=== PATIENT | female | born 1950 | race Caucasian/White ===

== ENCOUNTER 2020-10-20 11:53 | Emergency (ER) | payer MEDICARE, SELFPAY ==
--- NOTE | 2020-10-20 12:08 | ED_ITS ---
HPI - Chest Pain General Chief Complaint: Chest Pain Stated Complaint: chest pain Time Seen by Provider: 10/20/20 12:08 Source: patient Mode of arrival: ambulatory Limitations: no limitations History of Present Illness HPI narrative: This is a pleasant 70-year-old female she has a past medical history that is significant for hypertension, hypothyroidism, dyslipidemia, gastroesophageal reflux disease, gout, anxiety disorder for which she is taking citalopram for she presents today with complaint of left-sided chest pain/discomfort since yesterday states she took 324 mg of aspirin yesterday felt better for today no pain but just this feel ?right?. Again she denies any pain today she does report that she has had some increased stressors especially due to the holidays and she suffers from anxiety unsure if this is related. She does report that she has similar episodes once in the past where she had a hollie p and was told it might be anxiety related. She denies any other complaints. No recent travels. No recent sick contact, URI symptoms, cough or shortness of breath. No leg swelling. MD complaint: chest discomfort Onset: other (No specific alleviating/aggravating factors) Pain location: left chest Pain radiation: left arm Severity: mild Quality: tightness Relieving factors: nothing Exacerbating factors: nothing Treatment prior to arrival: aspirin Risk Factors Coronary artery disease risk factors: hyperlipidemia and hypertension Thoracic aortic dissection risk factors: none Related Data On Oral Contraceptives: No Allergies Allergy/AdvReac Type Severity Reaction Status Date / Time penicillin G [PENICILLIN G] Allergy Severe TONGUE Unverified 07/14/20 16:15 SWELLED AT AGE OF [age] YEAR OLD Sulfa (Sulfonamide Allergy Mild ITCHY Unverified 07/14/20 16:15 Antibiotics) [SULFA (SULFONAMIDE ANTIBIOTICS)] Review of Systems Review of Systems: Constitutional: No Weight loss, No Fever, No Chills, No Night Sweats, No Fatigue, No Malaise ENT/Mouth: No Hearing loss, No Ear Pain, No Nasal Congestion, No Sinus Pain, No Hoarseness, No sore throat, No Rhinorrhea, No Swallowing Difficulty Eyes: No Eye Pain, No Swelling, No Redness, No Foreign Body, No Discharge, No Vision Changes Cardiovascular: No Chest Pain, No SOB, No Dyspnea on Exertion, No Orthopnea, No Edema, No Palpitations Respiratory: No Cough, No Sputum, No Wheezing, No Smoke Exposure, No Dyspnea Gastrointestinal: No Nausea, No Vomiting, No Diarrhea, No Constipation, No abdominal Pain, No Hematochezia, No Melena Genitourinary: no irregular bleeding, No Dysuria, No Urinary Frequency, No Hematuria, No Urinary Incontinence, No Urgency, No Flank Pain Musculoskeletal: No joint pain, No Myalgias, No Joint Swelling Skin: No Skin Lesions, No rash Neuro: No Weakness, No Numbness, No Paresthesias, No Loss of Consciousness, No Dizziness, No Headache Psych: + Anxiety/Panic, No Depression, No SI/HI/AH/VH Heme/Lymph: No Bruising, No Bleeding,No Lymphadenopathy Endocrine: No Polyuria, No Polydipsia, No Temperature Intolerance Yes all other systems are reviewed and are negative [facility] Past Medical History Medical History Anxiety GERD (gastroesophageal reflux disease) High cholesterol HTN (hypertension) Hypothyroid Social History Social History Advance Directives: No Advance Directives Information Provided: No Physical Exam Vital Signs: Vital Signs: Last Vital Signs Temp 98.3 F 10/20/20 14:00 Pulse 96 10/20/20 14:00 Resp 20 10/20/20 14:00 BP 168/74 H 10/20/20 14:00 Pulse Ox 98 10/20/20 14:00 Body Mass Index 41.5 Reviewed Const: General: cooperative and healthy appearing; No acute distress or intoxicated appearing Nutritional Appearance: average body habitus Orientation/consciousness: patient oriented x3 HENMT: Head: Yes normal to inspection Ears: hearing grossly normal bilaterally Eyes: General: appearance normal, both eyes and all related structures Visual Harris: normal visual harris by confrontation Neck: Neck: Yes normal visual inspection and No tender Thyroid: Thyroid normal Chest: Chest palpation & inspection: normal inspection of the chest Resp: Effort & Inspection: normal respiratory effort Auscultation: clear to auscultation bilaterally Cardio: Jugular venous distension: no JVD Rhythm: regular rhythm Heart sounds: S1 normal heart sound present and S2 normal heart sound present GI: Inspection: Yes normal to inspection Percussion: Yes normal to percussion Auscultation: normal bowel sounds : General: Yes no CVA tenderness Back/Spine/Pelvis: Back: no CVA tenderness Skin: General skin exam: no rashes or lesions noted Neuro: General: patient oriented x3 Extrem: General: Yes normal to inspection MDM - Chest Pain MDM Narrative Medical decision making narrative: Labs overall stable. CBC within normal limits chemistries unremarkable, TSH, troponin negative. EKG nondiagnostic. Chest x-ray unremarkable. Age adjusted D-dimer within normal limits. H just cut off for patient is 680 today's levels 241. She is not hypoxic nor tachycardic to suggest pulmonary embolism. AP more consistent with atypical type chest pain/anxiety state. She feels better after 0.5 mg lorazepam p.o. has been resting comfortably without any complaints of pain or discomfort. Will be discharged home with clear precautions and follow-up instructions. Stable for discharge. Differential Diagnosis Differential diagnosis: Likely atypical chest pain, costochondritis and chest pain; Unlikely fracture of rib, pneumothorax, stable angina, unstable angina pectoris, st elevation myocardial infarction and biliary colic Medical Records Data Attestation: I reviewed the patient's medical records. Medical records narrative: Admission/discharge from 01/19/2014 reviewed; admission for chest pain rule out Lab Data Attestation: I reviewed the patient's lab results. Result diagrams: 10/20/20 13:54 10/20/20 13:55 Labs: Lab Results 10/20/20 10/20/20 10/20/20 Range/Units 13:54 13:55 13:55 WBC 6.5 (4.8-10.8) X10*3/uL RBC 4.41 (4.20-5.50) X10*6/uL Hgb 13.3 (12.0-16.0) g/dl Hct 41.0 (37-47) % MCV 93.0 (80-98) fL MCH 30.2 (27.0-33.0) pg MCHC 32.4 (31.0-35.0) g/dl RDW 14.0 (11.0-16.0) % Plt Count 305 (160-400) X10*3/uL MPV 11.0 (9.4-12.3) fL Immature Gran % (Auto) 0.3 (0.0-0.4) % Neut % (Auto) 53.8 (45-73) % Lymph % (Auto) 36.6 (20-40) % Wilkes % (Auto) 5.6 (2-11) % Eos % (Auto) 3.2 (0-4) % Baso % (Auto) 0.5 (0-2) % Lymph # (Auto) 2.4 (1.2-4.9) X10*3/uL Wilkes # (Auto) 0.4 (0.1-1.2) X10*3/uL Eos # (Auto) 0.2 (0.0-0.4) X10*3/uL Baso # (Auto) 0.0 (0.0-0.2) X10*3/uL Abs Immat Gran (auto) 0.02 (0.00-0.03) X10*3/uL Absolute Neuts (auto) 3.5 (2.0-8.3) X10*3/uL Absolute Nucleated RBC 0.000 (0.0-0.012) X10*3/uL Nucleated RBC % (auto) 0.0 (0.0-0.2) /100WBC PT 12.7 (10.8-13.0) SEC INR 1.1 (0.9-1.1) APTT 35.4 (24.1-38.0) SEC D-Dimer 241 NG/ML Sodium 140 (135-145) mmol/L Potassium 4.2 (3.3-5.1) mmol/l Chloride 107 (96-108) mmol/L Carbon Dioxide 25 (22-29) mmol/L Anion Gap 12 (12-20) BUN 16 (9-16) mg/dL Creatinine 0.80 (0.5-1.4) mg/dL Estim Creat Clear Calc 72.8 Estimated GFR > 60 Random Glucose 111 (60-115) mg/dL Calcium 9.1 (8.4-10.2) mg/dL Total Bilirubin 0.5 (0.0-1.0) mg/dL AST 29 (5-31) U/L ALT 36 H (0-31) U/L Alkaline Phosphatase 108 (39-117) U/L Troponin I High Sens (<3.5-17.0) ng/L Total Protein 6.8 (6.5-8.0) g/dL Albumin 4.2 (3.5-5.0) g/dL TSH 3.17 (0.32-4.0) uIU/mL Urine Color Urine Appearance Urine pH (5.0-8.0) Ur Specific [place] (1.005-1.025) Urine Protein (NEG-TRACE) MG/DL Urine Glucose (UA) (NEG) MG/DL Urine Ketones (NEG) MG/DL Urine Blood (NEG) Urine Nitrite (NEG) Ur Leukocyte Esterase (NEG) Urine RBC (0) /HPF Urine WBC (0-4) /HPF Ur Squamous Epith Cells /LPF Urine Bacteria /LPF Coronavirus (PCR) (Negative) Influenza Type A (PCR) (Negative) Influenza Type B (PCR) (Negative) RSV RNA Qual (PCR) (Negative) 10/20/20 10/20/20 10/20/20 Range/Units 13:55 14:13 14:15 WBC (4.8-10.8) X10*3/uL RBC (4.20-5.50) X10*6/uL Hgb (12.0-16.0) g/dl Hct (37-47) % MCV (80-98) fL MCH (27.0-33.0) pg MCHC (31.0-35.0) g/dl RDW (11.0-16.0) % Plt Count (160-400) X10*3/uL MPV (9.4-12.3) fL Immature Gran % (Auto) (0.0-0.4) % Neut % (Auto) (45-73) % Lymph % (Auto) (20-40) % Wilkes % (Auto) (2-11) % Eos % (Auto) (0-4) % Baso % (Auto) (0-2) % Lymph # (Auto) (1.2-4.9) X10*3/uL Wilkes # (Auto) (0.1-1.2) X10*3/uL Eos # (Auto) (0.0-0.4) X10*3/uL Baso # (Auto) (0.0-0.2) X10*3/uL Abs Immat Gran (auto) (0.00-0.03) X10*3/uL Absolute Neuts (auto) (2.0-8.3) X10*3/uL Absolute Nucleated RBC (0.0-0.012) X10*3/uL Nucleated RBC % (auto) (0.0-0.2) /100WBC PT (10.8-13.0) SEC INR (0.9-1.1) APTT (24.1-38.0) SEC D-Dimer NG/ML Sodium (135-145) mmol/L Potassium (3.3-5.1) mmol/l Chloride (96-108) mmol/L Carbon Dioxide (22-29) mmol/L Anion Gap (12-20) BUN (9-16) mg/dL Creatinine (0.5-1.4) mg/dL Estim Creat Clear Calc Estimated GFR Random Glucose (60-115) mg/dL Calcium (8.4-10.2) mg/dL Total Bilirubin (0.0-1.0) mg/dL AST (5-31) U/L ALT (0-31) U/L Alkaline Phosphatase (39-117) U/L Troponin I High Sens < 3.5 (<3.5-17.0) ng/L Total Protein (6.5-8.0) g/dL Albumin (3.5-5.0) g/dL TSH (0.32-4.0) uIU/mL Urine Color YELLOW Urine Appearance CLEAR Urine pH 6.0 (5.0-8.0) Ur Specific [place] 1.020 (1.005-1.025) Urine Protein NEG (NEG-TRACE) MG/DL Urine Glucose (UA) NEG (NEG) MG/DL Urine Ketones NEG (NEG) MG/DL Urine Blood NEG (NEG) Urine Nitrite NEG (NEG) Ur Leukocyte Esterase NEG (NEG) Urine RBC 0-2 (0) /HPF Urine WBC 0 (0-4) /HPF Ur Squamous Epith Cells TRACE /LPF Urine Bacteria NONE /LPF Coronavirus (PCR) NEGATIVE (Negative) Influenza Type A (PCR) NEGATIVE (Negative) Influenza Type B (PCR) NEGATIVE (Negative) RSV RNA Qual (PCR) NEGATIVE (Negative) Imaging Data Chest x-ray: Radiologist's impression: [address] [address] XRay Report Signed Patient: Becky Randhawa#: [id number] : 2Acct:[id number] Age/Sex: 70 / FADM Date: 10/20/20 Loc: HO.ED Attending Dr: Ordering Physician: Paul Garcia NP Date of Service: 10/20/20 Procedure(s): XR chest 1V Accession Number(s): [id number] cc: Paul Garcia [employer]OR OPERATOR~ EXAMINATION: XR CHEST CLINICAL INFORMATION: Chest pain COMPARISON: Report chest radiographs 01/19/2014 TECHNIQUE: Portable upright AP view of the chest was obtained. FINDINGS: The lungs are clear. There is no pneumothorax, pleural reaction, airspace consolidation, or groundglass opacity. The costophrenic sulci are clear. The heart is normal in size and the hilar contours are normal. There is retrocardiac lucency likely related to hiatal hernia measuring approximately 4.5 cm. No acute bony abnormality. XR/XR chest 1V IMPRESSION: 1. Lungs clear. No pneumothorax, infiltrate, or effusion. 2. Probable hiatal hernia. Dictated By:SAMMY JAQUEZ MD Signed By:<Electronically signed by SAMMY JAQUEZ MD in OV>10/20/20 1258 DD/ 1217 TD/TT: Manager Enterprise Content Management: GIRALDO ECG Data ECG #1: Interpretation: Normal sinus rhythm Rate 95 MN interval within normal limits No acute ST segment elevation Discharge Plan Discharge Clinical Impression: Atypical chest pain, Anxiety, Other social stressor Patient Disposition: Home, Self-Care Instructions: Chest Pain (ED), Anxiety (ED) Additional Instructions: Your complete blood count was within normal limits did not show any evidence of anemia Comprehensive metabolic profile was also within normal limits no evidence of electrolyte abnormality; kidneys function was within normal limits, liver function within normal limits Thyroid was 3.17. Her troponin was negative. Her chest x-ray did not show any evidence of acute disease Your COVID, RSV, flu test was negative Take medication prescribed Stress relieving techniques as discussed Return if any concerns or worsening symptoms Otherwise follow-up as discussed Thank you Referrals: Hi Berry [Primary Care Provider] - 1 week
[2020-10-20 12:09] VITALS: BP 170/80; PULSE 96; RESP 20; TEMP 36.8; O2SAT 98; BMI 41.5
--- NOTE | 2020-10-20 12:17 | ECG_ITS ---
Test Reason : SOB Blood Pressure : / mmHG Vent. Rate : 095 BPM Atrial Rate : 095 BPM P-R Int : 118 ms QRS Dur : 100 ms QT Int : 356 ms P-R-T Axes : 030 003 025 degrees QTc Int : 447 ms Normal sinus rhythm Normal ECG When compared with ECG of 19-JAN-2014 04:12, No significant change was found Referred By: Paul Garcia Electronically Signed By:CHIRAG MONTOYA MD
--- NOTE | 2020-10-20 12:17 | XR_ITS ---
EXAMINATION: XR CHEST CLINICAL INFORMATION: Chest pain COMPARISON: Report chest radiographs 01/19/2014 TECHNIQUE: Portable upright AP view of the chest was obtained. FINDINGS: The lungs are clear. There is no pneumothorax, pleural reaction, airspace consolidation, or groundglass opacity. The costophrenic sulci are clear. The heart is normal in size and the hilar contours are normal. There is retrocardiac lucency likely related to hiatal hernia measuring approximately 4.5 cm. No acute bony abnormality. XR/XR chest 1V IMPRESSION: 1. Lungs clear. No pneumothorax, infiltrate, or effusion. 2. Probable hiatal hernia.
[2020-10-20] MEDS: LORazepam 0.5 MG TABLET PO (12:26)
[2020-10-20 14:00] VITALS: BP 168/74; PULSE 96; RESP 20; TEMP 36.8; O2SAT 98
[2020-10-20 14:03] LABS: Basophils Percent Auto 0.5 % (0-2); Eosinophils Absolute Auto 0.2 X10*3/uL (0.0-0.4); Eosinophils Percent Auto 3.2 % (0-4); Hemoglobin 13.3 g/dl (12.0-16.0); Imm Gran Abs Auto 0.02 X10*3/uL (0.00-0.03); Imm Gran Pct Auto 0.3 % (0.0-0.4); Lymphocytes Absolute Auto 2.4 X10*3/uL (1.2-4.9); Lymphocytes Percent Auto 36.6 % (20-40); MANUAL DIFF FLAG NO; Mean Corpuscular HGB Conc 32.4 g/dl (31.0-35.0); Mean Corpuscular Hemoglobin 30.2 pg (27.0-33.0); Monocytes Absolute Auto 0.4 X10*3/uL (0.1-1.2); Monocytes Percent Auto 5.6 % (2-11); Neutrophils Absolute Auto 3.5 X10*3/uL (2.0-8.3); Neutrophils Percent Auto 53.8 % (45-73); Platelet Count 305 X10*3/uL (160-400); Red Blood Count 4.41 X10*6/uL (4.20-5.50); White Blood Count 6.5 X10*3/uL (4.8-10.8)
[2020-10-20 14:20] LABS: INTERNATIONAL NORM RATIO 1.1 (0.9-1.1); Prothrombin Time 12.7 SEC (10.8-13.0)
[2020-10-20 14:21] LABS: Glucose Urine UA NEG (NEG); Leukocyte Esterase Urine NEG (NEG); Nitrite Urine NEG (NEG); Urine Blood NEG (NEG); Urine Ketones NEG (NEG); Urine Protein NEG (NEG-TRACE)
[2020-10-20 14:22] LABS: Appearance Urine CLEAR; Color Urine YELLOW
[2020-10-20 14:22] LABS: D Dimer 241 NG/ML; Partial Thromboplastin Time 35.4 SEC (24.1-38.0)
[2020-10-20 14:26] LABS: Alanine Aminotransferase 36 U/L (0-31); Albumin Level 4.2 g/dL (3.5-5.0); Alkaline Phosphatase 108 U/L (39-117); Anion Gap 12 (12-20); Aspartate Amino Transferase 29 U/L (5-31); Bilirubin Total 0.5 mg/dL (0.0-1.0); Blood Urea Nitrogen 16 mg/dL (9-16); Calcium 9.1 mg/dL (8.4-10.2); Carbon Dioxide 25 mmol/L (22-29); Chloride 107 mmol/L (96-108); Creatinine Clr Calc Pharmacy 72.8; Estimated Glomerular Filt Rate > 60; Glucose Random 111 mg/dL (60-115); Potassium 4.2 mmol/l (3.3-5.1); Sodium 140 mmol/L (135-145); Total Protein 6.8 g/dL (6.5-8.0)
[2020-10-20 14:29] LABS: RBC Urine 0-2 /HPF (0); Squamous Epithelial Cell Urine TRACE /LPF; WBC Urine 0 /HPF (0-4)
[2020-10-20 14:33] LABS: Troponin-I High Sensitivity < 3.5 ng/L (<3.5-17.0)
[2020-10-20 14:48] LABS: Thyroid Stimulating Hormone 3.17 uIU/mL (0.32-4.0)
[2020-10-20 14:59] LABS: Influenza A PCR NEGATIVE (Negative); Influenza B PCR NEGATIVE (Negative); Resp Syncy Virus RNA Qual PCR NEGATIVE (Negative); SARS COV2 PCR INHOUSE NEGATIVE (Negative)
[2020-10-20 16:00] VITALS: BP 164/82; PULSE 96; RESP 20; TEMP 36.3; O2SAT 98
== END 2020-10-20 16:25 | disposition home or self-care (01) ==
PROVIDERS: Nurse Practitioner Primary Care; Emergency Provider Emergency Medicine; PCP Hospitalist
DX: R07.89 Other chest pain (principal); Z20.828 Contact with and (suspected) exposure to other viral communicable diseases; F41.9 Anxiety disorder, unspecified; F43.9 Reaction to severe stress, unspecified; I10 Essential (primary) hypertension
CPT/HCPCS: 0241U; 36415; 71045; 80053; 81001; 84443; 84484; 85025; 85379; 85610; 85730; 93005; 99284

== ENCOUNTER 2022-08-17 20:27 | Emergency (ER) | payer MEDICARE, SELFPAY ==
--- NOTE | 2022-08-17 | ECG_ITS ---
Test Reason : HYPERTENSION Blood Pressure : / mmHG Vent. Rate : 077 BPM Atrial Rate : 077 BPM P-R Int : 134 ms QRS Dur : 082 ms QT Int : 386 ms P-R-T Axes : 030 006 021 degrees QTc Int : 436 ms Normal sinus rhythm Normal ECG When compared with ECG of 20-OCT-2020 11:57, No significant change was found Referred By: Generic ED Physician Electronically Signed By:SHA HILL MD
[2022-08-17 21:47] VITALS: BP 202/87; PULSE 80; RESP 22; TEMP 36.8; O2SAT 97; BMI 41.5
[2022-08-17 23:09] LABS: MANUAL DIFF FLAG NO
[2022-08-17 23:11] LABS: Basophils Absolute Auto 0.1 X10*3/uL (0.0-0.2); Basophils Percent Auto 0.7 % (0-2); Eosinophils Absolute Auto 0.3 X10*3/uL (0.0-0.4); Eosinophils Percent Auto 3.2 % (0-4); Hemoglobin 13.6 g/dl (12.0-16.0); Imm Gran Abs Auto 0.04 X10*3/uL (0.00-0.03); Imm Gran Pct Auto 0.5 % (0.0-0.4); Lymphocytes Absolute Auto 2.9 X10*3/uL (1.2-4.9); Lymphocytes Percent Auto 32.3 % (20-40); Mean Corpuscular HGB Conc 33.2 g/dl (31.0-35.0); Mean Corpuscular Hemoglobin 30.4 pg (27.0-33.0); Mean Corpuscular Volume 91.7 fL (80.0-98.0); Mean Platelet Volume 10.9 fL (9.4-12.3); Monocytes Absolute Auto 0.5 X10*3/uL (0.1-1.2); Monocytes Percent Auto 5.9 % (2-11); Neutrophils Absolute Auto 5.1 x10*3/uL (2.0-8.3); Neutrophils Percent Auto 57.4 % (45-73); Platelet Count 350 X10*3/uL (160-400); Red Blood Count 4.47 X10*6/uL (4.20-5.50); White Blood Count 8.9 X10*3/uL (4.8-10.8)
[2022-08-17 23:32] LABS: Alanine Aminotransferase 26 U/L (0-31); Albumin Level 4.6 g/dL (3.5-5.0); Alkaline Phosphatase 108 U/L (39-117); Anion Gap 15 (12-20); Aspartate Amino Transferase 23 U/L (5-31); Bilirubin Total 0.6 mg/dL (0.0-1.0); Blood Urea Nitrogen 18 mg/dL (9-16); Calcium 9.8 mg/dL (8.4-10.2); Carbon Dioxide 26 mmol/L (22-29); Chloride 107 mmol/L (96-108); Creatinine Clr Calc Pharmacy 67.4; Estimated Glomerular Filt Rate > 60; Glucose Random 107 mg/dL (60-115); Potassium 4.7 mmol/L (3.3-5.1); Sodium 143 mmol/L (135-145); Total Protein 7.2 g/dL (6.5-8.0)
[2022-08-17 23:37] LABS: Troponin-I High Sensitivity < 3.5 ng/L (<3.5-17.0)
--- NOTE | 2022-08-18 02:53 | ED_ITS ---
HPI - General Adult General Chief complaint: General Medical Stated complaint: high blood pressure, anxiety Time Seen by Provider: 08/18/22 02:47 Source: patient Limitations: no limitations History of Present Illness HPI narrative: This is a 72-year-old female with history of hypertension who had been on losartan 50 mg p.o. daily, but her blood pressure readings have been elevated recently. The patient notes that she had a CT scan of her brain that showed a possible meningioma, upon further evaluation at [facility] it was deemed not to be a meningioma. The patient believes however that perhaps the increased stress of worrying about this caused her blood pressure to go up higher. Three days ago her primary care physician increased the losartan dose to 75 mg daily, however the patient states her blood pressure still been elevated with readings around 212/90. Patient denies any chest pain, acute headache, visual change, shortness of breath, numbness or weakness in her arms or legs or face. Related Data Allergies Allergy/AdvReac Type Severity Reaction Status Date / Time penicillin G [PENICILLIN G] Allergy Severe TONGUE Unverified 07/14/20 16:15 SWELLED AT AGE OF [age] YEAR OLD Sulfa (Sulfonamide Allergy Mild ITCHY Unverified 07/14/20 16:15 Antibiotics) [SULFA (SULFONAMIDE ANTIBIOTICS)] Review of Systems Review of Systems: Yes all other systems are reviewed and are negative Constitutional: Constitutional: Reports as per HPI and Denies fever(s) Eyes: Eyes: Reports as per HPI and Reports no additional eye complaints ENT: Reports system reviewed and no additional complaints, except as do cumented, Reports as per HPI, Denies nasal congestion, Denies nasal discharge and Denies sore throat Cardiovascular: Cardiovascular: Reports as per HPI, Denies chest pain and Denies dyspnea Respiratory: Respiratory: Reports as per HPI, Denies cough and Denies dyspnea Gastrointestinal: Gastrointestinal: Reports as per HPI, Denies abdominal pain, Denies diarrhea and Denies vomiting Musculoskeletal: Musculoskeletal: Reports no additional musculoskeletal complaints and Denies numbness Integumentary/Breasts: Skin/Breast: Reports as per HPI and Denies rash Neurologic: Reports as per HPI, Denies focal weakness and Denies numbness Psychiatric: Psychiatric: Reports no additional psychiatric complaints and Reports as per HPI Endocrine: Endocrine: Reports no additional endocrine complaints and Reports as per HPI Hematologic/Lymphatic: Hematologic/Lymphatic: Reports no additional hematologic/lymphatic complaints, Reports as per HPI and Reports other (No peripheral edema) [facility] Past Medical History Medical History Anxiety GERD (gastroesophageal reflux disease) High cholesterol HTN (hypertension) Hypothyroid Social History Social History Advance Directives: No Advance Directives Information Provided: No Physical Exam ED Vital Signs: Vital Signs - 24 hr 08/17/22 21:47 Temperature 98.2 F Pulse Rate 80 Respiratory Rate 22 H Blood Pressure 202/87 H Pulse Oximetry 97 Oxygen Delivery Method Room Air BMI result Body Mass Index 41.5 Const General: no acute distress Orientation/consciousness: patient oriented x3 HENMT Head: Yes normal to inspection General nose exam: Normal external nose present Mouth: moist mucous membranes Throat: Yes posterior oropharynx normal, Yes tonsils normal and Yes uvula midli ne Eyes Eyelids: Yes eyelids normal Conjunctivae: conjunctivae normal Pupils: Equal, round and reactive pupils present Neck Neck: Yes supple Resp Effort & Inspection: normal respiratory effort Auscultation: clear to auscultation bilaterally Cardio Rate: regular rate Rhythm: regular rhythm Heart sounds: S1 normal heart sound present, S2 normal heart sound present, no gallops, no murmurs and no rubs GI Inspection: No distended Palpation (GI): Soft to palpation and nontender Auscultation: normal bowel sounds Skin General skin exam: other (Warm and dry) Neuro General: patient oriented x3 and CN's II-XI intact bilaterally Cranial nerves: Yes Equal, round and reactive pupils present Extrem General: Yes no pedal edema Psych Affect: normal affect Attitude: cooperative Medical Decision Making [facility] Narrative Medical decision making narrative: Patient with hypertension, recently had her dose of losartan increased to 75 mg daily but still reports persistent hypertension. Patient's blood pressure is elevated with a systolic over 200. In treating with clonidine 0.2 mg p.o., and will recommend the patient take losartan 50 mg p.o. b.i.d. and follow-up with her primary care physician. Lab Data Lab results reviewed: Yes I reviewed the patient's lab results. Result diagrams: 08/17/22 22:49 08/17/22 22:49 Labs: Lab Results 08/17/22 08/17/22 08/17/22 Range/Units 22:49 22:49 22:49 WBC 8.9 (4.8-10.8) X10*3/uL RBC 4.47 (4.20-5.50) X10*6/uL Hgb 13.6 (12.0-16.0) g/dl Hct 41.0 (37.0-47.0) % MCV 91.7 (80.0-98.0) fL MCH 30.4 (27.0-33.0) pg MCHC 33.2 (31.0-35.0) g/dl RDW 14.0 (11.0-16.0) % Plt Count 350 (160-400) X10*3/uL MPV 10.9 (9.4-12.3) fL Immature Gran % (Auto) 0.5 H (0.0-0.4) % Neut % (Auto) 57.4 (45-73) % Lymph % (Auto) 32.3 (20-40) % Pepin % (Auto) 5.9 (2-11) % Eos % (Auto) 3.2 (0-4) % Baso % (Auto) 0.7 (0-2) % Lymph # (Auto) 2.9 (1.2-4.9) X10*3/uL Pepin # (Auto) 0.5 (0.1-1.2) X10*3/uL Eos # (Auto) 0.3 (0.0-0.4) X10*3/uL Baso # (Auto) 0.1 (0.0-0.2) X10*3/uL Abs Immat Gran (auto) 0.04 H (0.00-0.03) X10*3/uL Absolute Neuts (auto) 5.1 (2.0-8.3) x10*3/uL Absolute Nucleated RBC 0.000 (0.0-0.012) X10*3/uL Nucleated RBC % (auto) 0.0 (0.0-0.2) /100WBC Sodium 143 (135-145) mmol/L Potassium 4.7 (3.3-5.1) mmol/L Chloride 107 (96-108) mmol/L Carbon Dioxide 26 (22-29) mmol/L Anion Gap 15 (12-20) BUN 18 H (9-16) mg/dL Creatinine 0.84 (0.5-1.4) mg/dL Estim Creat Clear Calc 67.4 Estimated GFR > 60 Random Glucose 107 (60-115) mg/dL Calcium 9.8 D (8.4-10.2) mg/dL Total Bilirubin 0.6 (0.0-1.0) mg/dL AST 23 (5-31) U/L ALT 26 (0-31) U/L Alkaline Phosphatase 108 (39-117) U/L Troponin I High Sens < 3.5 (<3.5-17.0) ng/L Total Protein 7.2 (6.5-8.0) g/dL Albumin 4.6 (3.5-5.0) g/dL ECG Data Attestation: I personally reviewed and interpreted this ECG as follows: Interpretation: Sinus rhythm with a rate of 77. No concerning ST elevation or depression. Normal QRS axis. No change compared to 10/20/2024 Discharge Plan Discharge Clinical Impression: Hypertension Patient Disposition: Home, Self-Care Instructions: Hypertension (ED) Additional Instructions: Increase your losartan to 50 mg twice a day, and follow-up with your primary care physician next week for re-evaluation.
[2022-08-18 03:16] VITALS: BP 224/90; PULSE 75; RESP 20; TEMP 36.9; O2SAT 98
[2022-08-18] MEDS: cloNIDine HCL 0.2 MG TABLET PO (03:26)
[2022-08-18 04:10] VITALS: BP 174/64; PULSE 67; RESP 18; O2SAT 98
--- NOTE | 2022-08-18 06:11 | PC.NURSE ---
Pt. resting in bed, with at bedside. Pt. denies pain. Clonidine was effective in reducing blood pressure. Will continue to monitor.
== END 2022-08-18 06:23 | disposition home or self-care (01) ==
PROVIDERS: Emergency Provider Emergency Medicine; PCP Physician Assistant
DX: I10 Essential (primary) hypertension (principal); F41.9 Anxiety disorder, unspecified; E78.00 Pure hypercholesterolemia, unspecified; Z79.899 Other long term (current) drug therapy
CPT/HCPCS: 36415; 80053; 84484; 85025; 93005; 99283; 99284

== ENCOUNTER 2023-09-18 10:07 | Day surgery (SDC) | payer MEDICARE, SELFPAY ==
[2023-09-16 16:44] VITALS: BMI 43.5
--- NOTE | 2023-09-17 09:45 | P.CONAN_ITS ---
Documented by User: Juana Baker NP 09/17/23 09:45 HPI - Anesthesia Eval Consult details Narrative: 73yo F for Upper Endoscopy PMFSH Past Medical History Medical History (Updated 09/17/23 @ 09:28 by Dagmar Mackay RN) IBS (irritable bowel syndrome) YNES on CPAP Seasonal allergies Anxiety GERD (gastroesophageal reflux disease) High cholesterol HTN (hypertension) Hypothyroid Surgical History Surgical History (Updated 09/16/23 @ 16:24 by Suzette Ram, RN) Hx of colonoscopy Social History (Updated 09/16/23 @ 16:45 by Suzette Ram, BANG) Are you a primary healthcare science specialist to a significant other at home: No Do you presently have visiting nurse or other home services: No Patient Tobacco Use Status: Never used Tobacco Use of substances other than those prescribed or required for medical reasons: No Have you been hit, kicked, punched, or otherwise hurt by someone within the past year? If so, by whom?: No Are you DNR?: No Advance Directives: No Advance Directives Information Provided: Yes Advance Directives on File: No Recently lost weight without trying: No Nutrition Risks: No Nutritional Risk Meds Allergies Allergy/AdvReac Type Severity Reaction Status Date / Time penicillin G [PENICILLIN G] Allergy Severe TONGUE Verified 09/16/23 16:43 SWELLED AT AGE OF [age] YEAR OLD Sulfa (Sulfonamide Allergy Intermediate ITCHY, Verified 09/16/23 16:43 Antibiotics) hives [SULFA (SULFONAMIDE ANTIBIOTICS)] Home Medications Medication Instructions Recorded Confirmed Last Taken Type allopurinol 300 mg tablet 300 mg PO DAILY 09/16/23 09/16/23 Unknown History amlodipine 5 mg tablet 5 mg PO DAILY 09/16/23 09/16/23 Unknown History atorvastatin 40 mg tablet 40 mg PO DAILY 09/16/23 09/16/23 Unknown History cetirizine 10 mg tablet (Zyrtec) 10 mg PO DAILY 09/16/23 09/16/23 Unknown History cholecalciferol (vitamin D3) 50 50 mcg PO DAILY 09/16/23 09/16/23 Unknown History mcg (2,000 unit) capsule (Vitamin D3) citalopram 20 mg tablet 20 mg PO DAILY 09/16/23 09/16/23 Unknown History doxazosin 2 mg tablet 2 mg PO BEDTIME 09/16/23 09/16/23 Unknown History levothyroxine 125 mcg tablet 125 mcg PO DAILY 09/16/23 09/16/23 Unknown History (Synthroid) losartan 50 mg tablet 75 mg PO DAILY 09/16/23 09/16/23 Unknown History multivitamin 1 tab PO DAILY 09/16/23 09/16/23 Unknown History omeprazole 20 mg capsule,delayed 20 mg PO DAILY 09/16/23 09/16/23 Unknown History release spironolactone 25 mg tablet 25 mg PO DAILY 09/16/23 09/16/23 Unknown History Exam Height,Weight and Vital Signs: Height 5 ft 1 in Weight 104.326 kg Assessment and Plan Assessment Anesthesia Assessment: Chart Reviewed Documented by User: Marcos Crisostomo MD 09/19/23 16:20 HPI - Anesthesia Eval Consult details Narrative: 73yo F for Upper Endoscopy Sleep Apnea , uses CPAP Morbid Obesity PMFSH Past Medical History Medical History (Updated 09/17/23 @ 09:28 by Dagmar Mackay RN) IBS (irritable bowel syndrome) YNES on CPAP Seasonal allergies Anxiety GERD (gastroesophageal reflux disease) High cholesterol HTN (hypertension) Hypothyroid Functional capacity: independent ambulation Family History Family history of problems with anesthesia: No Surgical History Surgical History (Updated 09/16/23 @ 16:24 by Suzette Ram RN) Hx of colonoscopy History of Problems with Anesthesia: No Social History (Updated 09/16/23 @ 16:45 by Suzette Ram RN) Are you a primary healthcare science specialist to a significant other at home: No Do you presently have visiting nurse or other home services: No Patient Tobacco Use Status: Never used Tobacco Use of substances other than those prescribed or required for medical reasons: No Have you been hit, kicked, punched, or otherwise hurt by someone within the past year? If so, by whom?: No Are you DNR?: No Advance Directives: No Advance Directives Information Provided: Yes Advance Directives on File: No Recently lost weight without trying: No Nutrition Risks: No Nutritional Risk Meds Allergies Allergy/AdvReac Type Severity Reaction Status Date / Time penicillin G [PENICILLIN G] Allergy Severe TONGUE Verified 09/16/23 16:43 SWELLED AT AGE OF [age] YEAR OLD Sulfa (Sulfonamide Allergy Intermediate ITCHY, Verified 09/16/23 16:43 Antibiotics) hives [SULFA (SULFONAMIDE ANTIBIOTICS)] Home Medications Medication Instructions Recorded Confirmed Last Taken Type allopurinol 300 mg tablet 300 mg PO DAILY 09/16/23 09/16/23 Unknown History amlodipine 5 mg tablet 5 mg PO DAILY 09/16/23 09/16/23 Unknown History atorvastatin 40 mg tablet 40 mg PO DAILY 09/16/23 09/16/23 Unknown History cetirizine 10 mg tablet (Zyrtec) 10 mg PO DAILY 09/16/23 09/16/23 Unknown History cholecalciferol (vitamin D3) 50 50 mcg PO DAILY 09/16/23 09/16/23 Unknown History mcg (2,000 unit) capsule (Vitamin D3) citalopram 20 mg tablet 20 mg PO DAILY 09/16/23 09/16/23 Unknown History doxazosin 2 mg tablet 2 mg PO BEDTIME 09/16/23 09/16/23 Unknown History levothyroxine 125 mcg tablet 125 mcg PO DAILY 09/16/23 09/16/23 Unknown History (Synthroid) losartan 50 mg tablet 75 mg PO DAILY 09/16/23 09/16/23 Unknown History multivitamin 1 tab PO DAILY 09/16/23 09/16/23 Unknown History omeprazole 20 mg capsule,delayed 20 mg PO DAILY 09/16/23 09/16/23 Unknown History release spironolactone 25 mg tablet 25 mg PO DAILY 09/16/23 09/16/23 Unknown History Exam Airway Mallampati Class: IV (small mouth opening ) TM Dist: <=3cm Loose/Missing/Broken Teeth: Yes Assessment and Plan Assessment Anesthesia Assessment: Anesthesia Plan Discussed Final Anesthetic Review Family History of Problems with Anesthesia: No History of Problems with Anesthesia: No NPO: Yes ASA Class: III Final Preanesthetic Review: Meds/Allgs Chart Reviewed, Consent Obtained/Reviewed and Anes Risks/Benef Reviewed Patient Risk: High Procedure Risk: Intermediate Anesthetic Plan Anesthetic Plan: MAC: and Agree w/ Assess. and Plan Disposition: Standard PACU
[2023-09-18 10:32] VITALS: BP 145/76; PULSE 76; RESP 18; TEMP 36.1; O2SAT 95
[2023-09-18] MEDS: Lactated Ringers 1,000 ML 100 ML IVCONT (10:42)
[2023-09-18] MEDS: Albuterol Sulfate 2.5 MG, Albuterol/Iprat 2.5/0.5MG 3 ML 3 ML INHALE (10:43)
[2023-09-18 12:35] VITALS: BP 128/76; PULSE 85; RESP 13; TEMP 36.6; O2SAT 96
--- NOTE | 2023-09-18 12:39 | P.BOP_ITS ---
Brief Operative Note Date of Service: 09/18/23 Pre-op diagnosis: GERD, Hiatal hernia Post-op diagnosis: other (Same, R/O Toro's, Gastritis) Procedure: EGD with biopsies Surgeon: Keyshawn Rose MD Anesthesia: MAC Was an Hand Laminator used for this Procedure?: No Estimated blood loss (mL): 2.0 Pathology: other (A. Esophagus 28 to 30cm) Condition: stable Disposition: PACU
[2023-09-18 12:50] VITALS: BP 123/66; PULSE 79; RESP 20; TEMP 36.8; O2SAT 95
--- NOTE | 2023-09-18 12:58 | OP_ITS ---
DATE OF SERVICE: 09/18/2023 SURGEON: Keyshawn Rose MD INDICATIONS: The patient presents for evaluation of chronic gastroesophageal reflux, heartburn, and hiatal hernia. Full consent has been obtained from her for this, including risks of bleeding and perforation. PREOPERATIVE DIAGNOSIS: POSTOPERATIVE DIAGNOSIS: PROCEDURE PERFORMED: Esophagogastroduodenoscopy with biopsies. ESTIMATED BLOOD LOSS: COMPLICATIONS: ANESTHESIA: Monitored anesthesia care. ASSISTANTS: SPECIMENS: PREOPERATIVE DIAGNOSES: Gastroesophageal reflux, heartburn, and hiatal hernia. POSTOPERATIVE DIAGNOSES: Gastroesophageal reflux, heartburn, and hiatal hernia, rule out Toro's esophagus, gastritis. DESCRIPTION OF PROCEDURE: The patient was placed in the left lateral decubitus position. The Olympus video gastroscope was passed in the posterior oropharynx and upper esophagus under direct vision. The scope was passed slowly to the distal esophagus. The gastroesophageal junction appeared at 30 cm. Extending from this to 28 cm was a noncircumferential segment of what appeared to be Toro's mucosa. There was no evidence of any inflammation nor lesions. The scope entered the stomach. There was a large hiatal hernia with gastritis along the gastric folds. There was no ulceration nor mass in the hiatal hernia. The scope was advanced to the pylorus and the duodenum was cannulated to the descending portion. There was some looping of the scope in the stomach. The duodenum was cannulated to the descending portion. The duodenum including the bulb was carefully inspected and appeared normal. The scope was withdrawn back to the stomach. The gastric antrum and body appeared normal with good peristalsis. The scope was retroflexed visualizing the proximal stomach involving the hiatal hernia and gastritis, but there was no sign of any mass or ulceration. The scope was straightened and withdrawn back to the esophagus. I did obtain 2 biopsies in the segment of what appeared to be Toro's mucosa between 28 and 30 cm. I would have obtained more biopsies from that area, as well as from the hiatal hernia with the gastritis, but she began having some respiratory compromise and desaturation. The anesthesiologists felt that the procedure needed to be terminated at that point in order to safely manage her airway. As such, the procedure was terminated. The esophageal mucosa proximal to 28 cm appeared normal. The scope was withdrawn from the patient. She did tolerate the procedure well overall and was returned to the recovery area in stable condition. IMPRESSION: 1. 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 2. Large hiatal hernia with associated gastritis. PLAN: The results of the biopsies will be checked. Even though just 2 biopsies were obtained, I do not think a repeat endoscopy would be needed based on the gross appearance of the esophagus and stomach. Given her sleep apnea and elevated BMI, I think it would be best to avoid that unless absolutely necessary. She was advised to continue her omeprazole as she does report that is working well for her reflux at the present time. In regard to the hiatal hernia, this is otherwise asymptomatic and she has already seen the surgeons at [facility] who apparently are going to observe things rather than recommend surgery. I did advise her to see me in the early part of 2023 for followup as well. This has all been discussed with the patient and her in detail. MD MICAELA Gorman/BRANDEN / [id number] MTDD
== END 2023-09-18 13:28 | disposition home or self-care (01) ==
PROVIDERS: PCP Physician Assistant; Visit Provider Internal Medicine
PROC: 0DJ08ZZ Inspection of Upper Intestinal Tract, Via Natural or Artificial Opening Endoscopic (ICD-10-PCS; CPT 43235; principal; 2023-09-18 11:20)
DX: K21.9 Gastro-esophageal reflux disease without esophagitis (principal); K44.9 Diaphragmatic hernia without obstruction or gangrene; K29.50 Unspecified chronic gastritis without bleeding; K22.70 Barrett's esophagus without dysplasia; G47.33 Obstructive sleep apnea (adult) (pediatric); K58.9 Irritable bowel syndrome, unspecified; I10 Essential (primary) hypertension; E78.5 Hyperlipidemia, unspecified; E03.9 Hypothyroidism, unspecified; M10.9 Gout, unspecified; J30.2 Other seasonal allergic rhinitis; Z79.899 Other long term (current) drug therapy; Z99.89 Dependence on other enabling machines and devices; Z88.0 Allergy status to penicillin; Z88.2 Allergy status to sulfonamides
CPT/HCPCS: 43239; 88305; J2704; J3010

== ENCOUNTER 2024-08-28 18:36 | Emergency (ER) | payer MEDICARE, SELFPAY ==
--- NOTE | ~2024-08-28 | XR_ITS ---
EXAMINATION: XR CHEST CLINICAL INFORMATION: Palpitations COMPARISON: None available. TECHNIQUE: 2 views of the chest were obtained. FINDINGS: Large hiatus hernia. No significant abnormality is noted involving the heart, lungs, mediastinum, bony thorax or soft tissues. XR/XR chest 2V IMPRESSION: No active chest disease. Large hiatus hernia. Electronically signed by: Vazquez Randolph MD 08/28/2024 08:12 PM EDT RP
--- NOTE | 2024-08-28 19:00 | ED.GENADULT ---
HPI - General Adult General Chief complaint: General Medical Stated complaint: HIGH HEARTRATE Time Seen by Provider: 08/28/24 18:49 Source: patient Limitations: no limitations History of Present Illness ED Provider: Caroline Jc PA-C HPI narrative: Patient is a 74y F with a PMH of hypothyroidism, anxiety, HTN, and HLD who presents today with a complaint of high heart rate. Patient states she was at home watching tv when she had a sudden lopez over her body and began to feel her heart beat faster. She states this has happened before and it is usually alleviated with resting, however this time did not. She took half of her lorazepam and symptoms did not subside. Her apple watch at that time noted her HR to be 99, and her home BP was 167/82. Usually, her HR is about 70 and her BP is about 130/70. She denies recent illness, medication changes, or SOB. Related Data Home Medications ?Medication ?Instructions ?Recorded ?Confirmed allopurinol 300 mg tablet 300 mg PO DAILY 09/16/23 09/16/23 amlodipine 5 mg tablet 5 mg PO DAILY 09/16/23 09/16/23 atorvastatin 40 mg tablet 40 mg PO DAILY 09/16/23 09/16/23 cetirizine 10 mg tablet (Zyrtec) 10 mg PO DAILY 09/16/23 09/16/23 cholecalciferol (vitamin D3) 50 50 mcg PO DAILY 09/16/23 09/16/23 mcg (2,000 unit) capsule (Vitamin D3) citalopram 20 mg tablet 20 mg PO DAILY 09/16/23 09/16/23 doxazosin 2 mg tablet 2 mg PO BEDTIME 09/16/23 09/16/23 levothyroxine 125 mcg tablet 125 mcg PO DAILY 09/16/23 09/16/23 (Synthroid) losartan 50 mg tablet 75 mg PO DAILY 09/16/23 09/16/23 multivitamin 1 tab PO DAILY 09/16/23 09/16/23 omeprazole 20 mg capsule,delayed 20 mg PO DAILY 09/16/23 09/16/23 release spironolactone 25 mg tablet 25 mg PO DAILY 09/16/23 09/16/23 Allergies Allergy/AdvReac Type Severity Reaction Status Date / Time penicillin G [PENICILLIN G] Allergy Severe TONGUE Verified 08/28/24 19:03 SWELLED AT AGE OF [age] YEAR OLD Sulfa (Sulfonamide Allergy Intermediate ITCHY, Verified 08/28/24 19:03 Antibiotics) hives [SULFA (SULFONAMIDE ANTIBIOTICS)] Review of Systems Review of Systems: Yes all other systems are reviewed and are negative Constitutional: Constitutional: Denies fatigue, Denies fever(s), Denies headache(s) and Denies weight gain Eyes: Eyes: Denies change in vision ENT: Denies dizziness and Denies headache(s) Cardiovascular: Cardiovascular: Denies chest pain, Denies syncope, Denies leg edema, Reports palpitations and Denies dyspnea Respiratory: Respiratory: Denies cough and Denies dyspnea Gastrointestinal: Gastrointestinal: Denies change in bowel habits Genitourinary: Genitourinary: Denies urinary urgency Musculoskeletal: Musculoskeletal: Denies arthralgias and Denies joint swelling Neurologic: Denies dizziness, Denies syncope and Denies headache(s) Psychiatric: Psychiatric: Reports anxiety, Reports panic attacks, Denies homicidal ideation and Denies suicidal ideation Endocrine: Endocrine: Denies fatigue and Reports palpitations PMFSH Past Medical History Attestation statement: The following information was validated with the patient. Medical History (Updated 08/28/24 @ 20:55 by MP Ye) IBS (irritable bowel syndrome) YNES on CPAP Seasonal allergies Anxiety GERD (gastroesophageal reflux disease) High cholesterol HTN (hypertension) Hypothyroid Surgical History (Updated 09/16/23 @ 16:24 by Suzette Ram RN) Hx of colonoscopy Social History Social History (Updated 09/16/23 @ 16:45 by Suzette Ram RN) Are you a primary infant childcare provider to a significant other at home: No Do you presently have visiting nurse or other home services: No Patient Tobacco Use Status: Never used Tobacco Smoked in Last 30 Days: No Use of substances other than those prescribed or required for medical reasons: No Advance Directives: Yes Advance Directives Information Provided: No Advance Directives on File: No Do you have a plan to hurt others: No Plan Physical Exam ED Vital Signs: Vital Signs - 24 hr 08/28/24 19:02 08/28/24 20:00 Temperature 98.3 F 97.2 F Pulse Rate 81 72 Respiratory Rate 18 17 Blood Pressure 135/73 144/60 H Pulse Oximetry 95 94 Oxygen Delivery Method Room Air Nasal Cannula Room Air BMI result Body Mass Index 43.6 Const General: cooperative, healthy appearing, comfortable and no acute distress Nutritional Appearance: average body habitus Orientation/consciousness: patient oriented x3 Limitations: no limitations Neck Neck: Yes no meningeal signs Resp Effort & Inspection: normal respiratory effort and able to speak in complete sentences Auscultation: clear to auscultation bilaterally Cardio Jugular venous distension: no JVD Rate: regular rate Rhythm: regular rhythm Heart sounds: S1 normal heart sound present and S2 normal heart sound present GI Inspection: Yes normal to inspection and No distended Skin Other: warm and dry, no rash Neuro General: patient oriented x3, no meningeal signs and no focal motor deficits Cranial nerves: Yes CN's II-XII intact bilaterally and Yes Bilaterally intact EOM present Cognition (Neuro): normal cognition Extrem General: Yes normal to inspection and Yes full ROM Psych Other: calm and cooperative Medical Decision Making Medical Decision Making MDM Narrative: I Caroline Jc PA-C have personally assessed and manage the patient, Stacie BAZAN observed in helped to formulate the note Patient is a 74y F with a PMH of hypothyroidism, anxiety, HTN, and HLD who presents today with a complaint of high heart rate. Patient states she was at home watching tv when she had a sudden lopez over her body and began to feel her heart beat faster. She states this has happened before and it is usually alleviated with resting, however this time did not. She took half of her lorazepam and symptoms did not subside. Her apple watch at that time noted her HR to be 99, and her home BP was 167/82. Usually, her HR is about 70 and her BP is about 130/70. She denies recent illness, medication changes, or SOB. Patient has a PMH of hypothyroidism, anxiety, HTN, and HLD. DDx: panic attack, ACS, PE, arrhythmia, medication side effect, hyperthyroidism, viral syndrome, electrolyte abnormality Plan: Given that the patient has a history of anxiety and has had similar episodes in the past, I believe the most likely cause of her symptoms is a panic attack. Patient has a history of HTN and HLD, therefore ACS and arrhythmia were considered, however patients EKG shows no abnormality, no murmur was heard on exam, there was no chest pain, and patient has history of same illness. Since the patient has a history of hypothyroidism and is currently medicated with Synthroid, she could now have hyperthyroidism. Considering her medication has not recently changed, I think this is unlikely as well. No medications have been changed in the past few months, and there is no known trigger, therefore making a medication side effect less likely. Will rule out other causes first. Patient could have a PE, however she denies SOB, leg swelling, and history of blood clots. Patient also has hx of present illness, making it less likely. Defer d-dimer at this time. Considered viral syndrome, however patient has no upper respiratory symptoms or sick contacts. Defer serology at this time. per Caroline Jc PA-C Patient's rate at home bumped to 102, as she was watching her I watch, I do believe she has triggering her palpitations. We are not capturing tachycardic here in the ER, she is normal sinus rhythm with a rate of 77, I do believe her anxiety is poorly controlled. We will send with outpatient resources for therapy. Thought about new arrhythmia, however again not captured on this EKG, if she has persisting symptoms, she will follow up with her primary care provider for a Holter monitor trial. PE was considered, however she is not objectively tachycardic, hypoxic, no objective signs symptoms for DVT on exam, no pleuritic chest pain or shortness of breath, no indication for a dimer she also has no infectious signs symptoms to suggest a fever. Also considering electrolyte abnormality, anmeia, dehydration that could have perpetuated the palpitations, we will add this to screening labs. I have independently reviewed the following tests: Labs: No leukocytosis, not anemic, no electrolyte abnormality EKG: Normal sinus rhythm, rate of 77, no ischemic changes no ectopy, QT 454 CXR: RDER #: [id number] XR/XR chest 2V IMPRESSION: No active chest disease. Large hiatus hernia. Electronically signed by: Vazquez Randolph MD 08/28/2024 08:12 PM EDT RP Lab Data 08/28/24 19:37 08/28/24 19:37 Labs: Lab Results 08/28/24 Range/Units 19:37 WBC 6.8 (4.8-10.8) X10*3/uL RBC 4.19 L (4.20-5.50) X10*6/uL Hgb 12.8 (12.0-16.0) g/dl Hct 38.3 (37.0-47.0) % MCV 91.4 (80.0-98.0) fL MCH 30.5 (27.0-33.0) pg MCHC 33.4 (31.0-35.0) g/dl RDW 14.1 (11.0-16.0) % Plt Count 315 (160-400) X10*3/uL MPV 10.9 (9.4-12.3) fL Immature Gran % (Auto) 0.3 (0.0-0.4) % Neut % (Auto) 67.3 (45-73) % Lymph % (Auto) 23.8 (20-40) % Titus % (Auto) 6.1 (2-11) % Eos % (Auto) 1.9 (0-4) % Baso % (Auto) 0.6 (0-2) % Lymph # (Auto) 1.6 (1.2-4.9) X10*3/uL Titus # (Auto) 0.4 (0.1-1.2) X10*3/uL Eos # (Auto) 0.1 (0.0-0.4) X10*3/uL Baso # (Auto) 0.0 (0.0-0.2) X10*3/uL Abs Immat Gran (auto) 0.02 (0.00-0.03) X10*3/uL Absolute Neuts (auto) 4.6 (2.0-8.3) x10*3/uL Absolute Nucleated RBC 0.000 (0.0-0.012) X10*3/uL Nucleated RBC % (auto) 0.0 (0.0-0.2) /100WBC Sodium 141 (135-145) mmol/L Potassium 4.1 (3.3-5.1) mmol/L Chloride 109 H (96-108) mmol/L Carbon Dioxide 21 L (22-29) mmol/L Anion Gap 15 (12-20) BUN 15 (9-16) mg/dL Creatinine 1.05 (0.5-1.4) mg/dL Estim Creat Clear Calc 53.9 Estimated GFR 52 Random Glucose 124 H (60-115) mg/dL Calcium 10.0 (8.4-10.2) mg/dL Magnesium 2.0 (1.6-2.6) mg/dL Total Bilirubin 0.6 (0.0-1.0) mg/dL AST 22 (5-31) U/L ALT 22 (0-31) U/L Alkaline Phosphatase 108 (39-117) U/L Total Protein 7.1 (6.5-8.0) g/dL Albumin 4.2 (3.5-5.0) g/dL Discharge Plan Discharge Clinical Impression: Palpitations, Anxiety Patient Disposition: Home, Self-Care Instructions: Anxiety (ED), Heart Palpitations (ED) Additional Instructions: All of your screening labs were normal, there were no concerning changes on her EKG in your chest x-ray was clear. I do believe yourself perpetuating your elevated heart rate. It appears your anxiety is poorly controlled. I am sending you with a list of outpatient resources so that you can initiate therapy. In regard to the palpitations, if you have more frequent episodes, that persist, you may require a Holter monitor trial as an outpatient. Your primary care can initiate this test. This will determine if you have a true abnormal rhythm of your heart. Call your doctor Saturday to schedule a follow up appointment. Prescriptions: No Action losartan 50 mg tablet 75 mg PO DAILY atorvastatin 40 mg tablet 40 mg PO DAILY amlodipine 5 mg tablet 5 mg PO DAILY spironolactone 25 mg tablet 25 mg PO DAILY citalopram 20 mg tablet 20 mg PO DAILY levothyroxine [Synthroid] 125 mcg tablet 125 mcg PO DAILY omeprazole 20 mg capsule,delayed release(DR/EC) 20 mg PO DAILY allopurinol 300 mg tablet 300 mg PO DAILY doxazosin 2 mg tablet 2 mg PO BEDTIME multivitamin Tablet 1 tab PO DAILY cetirizine [Zyrtec] 10 mg Tablet 10 mg PO DAILY cholecalciferol (vitamin D3) [Vitamin D3] 50 mcg (2,000 unit) Capsule 50 mcg PO DAILY Print Language: Setswana
[2024-08-28 19:02] VITALS: BP 135/73; BP 150/82; PULSE 81; PULSE 92; RESP 18; TEMP 36.8; O2SAT 95; O2SAT 96; BMI 43.6
--- NOTE | 2024-08-28 19:03 | ECG_ITS ---
Test Reason : TACHYCARDIA Blood Pressure : / mmHG Vent. Rate : 077 BPM Atrial Rate : 077 BPM P-R Int : 126 ms QRS Dur : 080 ms QT Int : 402 ms P-R-T Axes : -17 -19 -18 degrees QTc Int : 454 ms Normal sinus rhythm Low voltage QRS Nonspecific T wave abnormality Abnormal ECG When compared with ECG of 17-AUG-2022 22:58, Nonspecific T wave abnormality, worse in Inferior leads Nonspecific T wave abnormality now evident in Lateral leads Referred By: Caroline Jc Electronically Signed By:RIA VASQUEZ
[2024-08-28 19:43] LABS: MANUAL DIFF FLAG NO
[2024-08-28 19:46] LABS: Basophils Percent Auto 0.6 % (0-2); Eosinophils Absolute Auto 0.1 X10*3/uL (0.0-0.4); Eosinophils Percent Auto 1.9 % (0-4); Hematocrit 38.3 % (37.0-47.0); Hemoglobin 12.8 g/dl (12.0-16.0); Imm Gran Abs Auto 0.02 X10*3/uL (0.00-0.03); Imm Gran Pct Auto 0.3 % (0.0-0.4); Lymphocytes Absolute Auto 1.6 X10*3/uL (1.2-4.9); Lymphocytes Percent Auto 23.8 % (20-40); Mean Corpuscular HGB Conc 33.4 g/dl (31.0-35.0); Mean Corpuscular Hemoglobin 30.5 pg (27.0-33.0); Mean Corpuscular Volume 91.4 fL (80.0-98.0); Mean Platelet Volume 10.9 fL (9.4-12.3); Monocytes Absolute Auto 0.4 X10*3/uL (0.1-1.2); Monocytes Percent Auto 6.1 % (2-11); Neutrophils Absolute Auto 4.6 x10*3/uL (2.0-8.3); Neutrophils Percent Auto 67.3 % (45-73); Platelet Count 315 X10*3/uL (160-400); Red Blood Count 4.19 X10*6/uL (4.20-5.50); Red Cell Distribution Width 14.1 % (11.0-16.0); White Blood Count 6.8 X10*3/uL (4.8-10.8)
[2024-08-28 20:00] VITALS: BP 144/60; PULSE 72; RESP 17; TEMP 36.2; O2SAT 94
[2024-08-28 20:01] LABS: Alanine Aminotransferase 22 U/L (0-31); Albumin Level 4.2 g/dL (3.5-5.0); Alkaline Phosphatase 108 U/L (39-117); Anion Gap 15 (12-20); Aspartate Amino Transferase 22 U/L (5-31); Bilirubin Total 0.6 mg/dL (0.0-1.0); Blood Urea Nitrogen 15 mg/dL (9-16); Carbon Dioxide 21 mmol/L (22-29); Chloride 109 mmol/L (96-108); Creatinine Clr Calc Pharmacy 53.9; Estimated Glomerular Filt Rate 52; Glucose Random 124 mg/dL (60-115); Potassium 4.1 mmol/L (3.3-5.1); Sodium 141 mmol/L (135-145); Total Protein 7.1 g/dL (6.5-8.0)
[2024-08-28 21:21] VITALS: BP 144/59; PULSE 85; RESP 16; TEMP 36.8; O2SAT 96
== END 2024-08-28 21:21 | disposition home or self-care (01) ==
PROVIDERS: Physician Assistant Medical; Emergency Provider Emergency Medicine; PCP Nurse Practitioner Family
DX: R00.2 Palpitations (principal); F41.8 Other specified anxiety disorders; R00.0 Tachycardia, unspecified; R94.31 Abnormal electrocardiogram [ECG] [EKG]; Z79.899 Other long term (current) drug therapy
CPT/HCPCS: 36415; 71046; 80053; 83735; 85025; 93005; 99283; 99284

== ENCOUNTER → 2024-08-28 19:03 | Outpatient (BNV) | payer MEDICARE, SELFPAY | PROVIDERS: Emergency Provider Emergency Medicine; PCP Nurse Practitioner Family; Visit Provider Internal Medicine | DX: R94.31 Abnormal electrocardiogram [ECG] [EKG] (principal) | CPT/HCPCS: 93010 ==

== ENCOUNTER 2025-02-09 00:25 | Emergency (ER) | payer MEDICARE, SELFPAY ==
--- NOTE | 2025-02-09 00:33 | ECG_ITS ---
Test Reason : CHEST PX Blood Pressure : */* mmHG Vent. Rate : 80 BPM Atrial Rate : 80 BPM P-R Int : 122 ms QRS Dur : 84 ms QT Int : 418 ms P-R-T Axes : 21 6 30 degrees QTcB Int : 482 ms Normal sinus rhythm Normal ECG When compared with ECG of 28-Aug-2024 19:07, Nonspecific T wave abnormality, improved in Inferior leads Nonspecific T wave abnormality no longer evident in Lateral leads Referred By: Generic ED Physician Electronically Signed By: CHIRAG MONTOYA MD
[2025-02-09 00:34] VITALS: BP 132/63; BP 158/71; PULSE 84; PULSE 86; RESP 16; TEMP 36.5; O2SAT 96; O2SAT 97; BMI 40.5
[2025-02-09 01:11] VITALS: PULSE 82
[2025-02-09 01:23] LABS: Basophils Absolute Auto 0.1 X10*3/uL (0.0-0.2); Basophils Percent Auto 0.8 % (0-2); Eosinophils Absolute Auto 0.1 X10*3/uL (0.0-0.4); Eosinophils Percent Auto 1.4 % (0-4); Hemoglobin 13.7 g/dl (12.0-16.0); Imm Gran Abs Auto 0.02 X10*3/uL (0.00-0.03); Imm Gran Pct Auto 0.2 % (0.0-0.4); Lymphocytes Absolute Auto 2.9 X10*3/uL (1.2-4.9); Lymphocytes Percent Auto 32.6 % (20-40); Mean Corpuscular HGB Conc 31.9 g/dl (31.0-35.0); Mean Corpuscular Hemoglobin 31.1 pg (27.0-33.0); Mean Corpuscular Volume 97.5 fL (80.0-98.0); Mean Platelet Volume 10.6 fL (9.4-12.3); Monocytes Absolute Auto 0.5 X10*3/uL (0.1-1.2); Monocytes Percent Auto 5.7 % (2-11); Neutrophils Absolute Auto 5.4 x10*3/uL (2.0-8.3); Neutrophils Percent Auto 59.3 % (45-73); PLT CLUMP 1; Red Blood Count 4.41 X10*6/uL (4.20-5.50); Red Cell Distribution Width 14.2 % (11.0-16.0); SCAN SMEAR FLAG 1
[2025-02-09 01:26] LABS: MANUAL DIFF FLAG NO
[2025-02-09 01:37] LABS: Alanine Aminotransferase 28 U/L (0-31); Albumin Level 4.3 g/dL (3.5-5.0); Alkaline Phosphatase 99 U/L (39-117); Anion Gap 18 (12-20); Aspartate Amino Transferase 42 U/L (5-31); Bilirubin Total 0.6 mg/dL (0.0-1.0); Blood Urea Nitrogen 18 mg/dL (9-16); Calcium 9.7 mg/dL (8.4-10.2); Carbon Dioxide 17 mmol/L (22-29); Chloride 110 mmol/L (96-108); Creatinine Clr Calc Pharmacy 58.9; Estimated Glomerular Filt Rate > 60; Glucose Random 140 mg/dL (60-115); Potassium 4.6 mmol/L (3.3-5.1); Sodium 140 mmol/L (135-145); Total Protein 7.6 g/dL (6.5-8.0); Troponin-I High Sensitivity < 2.7 ng/L (<3.5-17.0)
[2025-02-09 01:51] LABS: Platelet Count 347 X10*3/uL (160-400)
--- OUTSIDE RECORDS SUMMARY | 2025-02-09 01:52 | XMS_ITS ---
Author Organization [facility] Address [address] [place] [phone] Care Team Providers Care Perishable Fruit Inspector Name Role Phone Manda Vitale Primary Care Provider Keyshawn Marlow [phone] REASON FOR VISIT appt today /sick/r/s to march Encounters Encounter Location Date Provider Diagnosis [facility] [address] [place] [phone] 01/21/2024 Keyshawn Rose Plan Of Treatment No Information Progress Notes * JESSICA CAUSEY ADOB: [birth year] (73 yo F)Acc No.[id number]:01/21/2024 Patient:?JESSICA CAUSEY :1950???Age:73 Y???Sex:Female Address:[address] [place] [phone] * true * Date:? Generated for Ramonita peñaloza/Damian/eTransmitting on:?02/09/2025 01:52 AM EDT
--- OUTSIDE RECORDS SUMMARY | 2025-02-09 01:52 | XMS_ITS | Clinical Summary ---
Author Organization [facility] Address [address] [place] [phone] Phone Care Team Providers Care Search Planner Name Role Phone Anny Black NP Primary Care Provider [phone] Allergies Active Allergy Reactions Criticality Noted Date Comments Penicillin G Itching,Shortness of breath,Swelling High 08/09/2022 Sulfadiazine 08/09/2022 Medications allopurinol (ZYLOPRIM) 300 MG tablet Take 300 mg by mouth 1 (one) time each day 07/17/2022 Active cholecalciferol (VITAMIN D-3 SUPER STRENGTH) 50 MCG (2000 UT) tablet Take 1,000 Units by mouth in the morning. Active citalopram (CeleXA) 20 MG tablet Take 20 mg by mouth in the morning. 06/05/2022 Active Synthroid 125 MCG tablet Take 125 mcg by mouth 1 (one) time each day 07/05/2022 Active losartan (COZAAR) 50 MG tablet Take 50 mg by mouth in the morning and 50 mg in the evening. 08/15/2022 Active nystatin (MYCOSTATIN) powder APPLY TO AFFECTED AREA TWICE A DAY 07/17/2022 Active omeprazole (PriLOSEC) [address] capsule Take by mouth 1 (one) time each day 07/09/2022 Active Multiple Vitamin (multivitamin) tablet Take 1 tablet by mouth 1 (one) time each day Active amLODIPine (NORVASC) 5 MG tablet Take 1 tablet (5 mg total) by mouth 1 (one) time each day 90 tablet 3 12/20/2022 Active LORazepam (ATIVAN) 0.5 MG tablet Take 0.5 mg by mouth every 6 (six) hours if needed 09/04/2022 Active spironolactone (Aldactone) 50 MG tabletIndicatio ns:Hypertension Take 1 tablet (50 mg total) by mouth 1 (one) time each day 90 tablet 3 08/31/2024 08/31/20 25 Active busPIRone (BUSPAR) 5 MG tablet Take 5 mg by mouth 11/19/2024 Active Blood Pressure Monitoring (Omron 3 Series BP Monitor) deviceIndicatio ns:Stage 3a chronic kidney disease (HCC),Hypertens ion 1 Device 1 (one) time each day 1 each 01/04/2025 Active Active Problems Problem Noted Date Diagnosed Date Stage 3a chronic kidney disease 01/04/2025 Chronic kidney disease, stage 2 (mild) Obstructive sleep apnea 12/14/2022 Morbid obesity 12/04/2022 FH: premature coronary heart disease 12/04/2022 Dyspnea on exertion 12/04/2022 Allergic rhinitis 12/03/2022 Hypertension 09/10/2022 Assessment & Plan (12/20/2022 2:14 PM EST): On 3 antihypertensives, spironolactone was added last time. Potassium was 4.7 She had developed b/l LE swelling for last 3/4 months. 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 Plan is to continue amlodipine 5 mg at am. Add doxazocin 2 mg at night. Continue losartan 50 mg twice daily. Spironolactone 25 mg daily at am. Follow up in 6 months. Mixed hyperlipidemia 09/10/2022 Assessment & Plan (12/20/2022 1:42 PM EST): On simvastatin 10 mg daily. Vitamin D deficiency, not otherwise specified Assessment & Plan (12/20/2022 1:42 PM EST): On Vit D 2000 ID daily. Other specified hypothyroidism 09/10/2022 Encounters Date Type Department Care Team Description 01/04/2025 10:00 AM EDT Office Visit [facility] [address] [phone] Alisa UrbanoniferJAMES Stage 3a chronic kidney disease (HCC) (Primary Dx); Hypertension; Vitamin D deficiency, not otherwise specified 01/04/2025 Refill [facility] [address] [phone] Daja Younger MA Stage 3a chronic kidney disease (HCC); Hypertension 11/25/2024 1:15 PM EST [facility] [address] [phone] UrbanoAlisaSarayJAMES monique Chronic kidney disease, stage 2 (mild) (Primary Dx); Hypertension 11/24/2024 Travel from Last 3 Months Immunizations Immunization Administration Dates Next Due Hep B, Unspecified 12/08/2012,07/07/2012, 012 Hepatitis A 12/08/2012,06/05/2012 Influenza (IM) Preservative Free 09/24/2011 Influenza Whole 08/25/2019,07/07/2012,08/28/2010 Influenza, Unspecified 07/25/2022 Moderna SARS-COV-2 08/27/2021,01/24/2021, 021 Pneumococcal Conjugate 13-Valent 08/26/2017 Pneumococcal Polysaccharide 09/19/2018 SARS-CoV-2, Unspecified 09/27/2022 Shingrix 10/16/2020 Tdap 03/14/2016,06/23/2009 Zoster 08/28/2020,10/16/2019,03/28/2014 ,08/27/2013 Family History Medical History Relation Comments Heart disease Father Diabetes Mother Heart disease Mother Relation Status Comments Father Mother Social History Tobacco Use Types Packs/Day Years Used Date Smoking Tobacco: Never Smokeless Tobacco: Never Tobacco Cessation:Counseling Given: Not Answered Alcohol Use Standard Drinks/Week Comments Never 0 (1 standard drink = 0.6 oz pur e alcohol) Comments Unknown Sex and Gender Information Value Date Recorded Sex Assigned at Female 12/13/2022 4:14 PM EST Legal Sex Female 8:50 AM EST Gender Identity Female 12/13/2022 4:14 PM EST Sexual Orientation Straight 12/13/2022 4: 14 PM EST Last Filed Vital Signs Vital Sign Reading Time Taken Comments Blood Pressure 126/80 01/04/2025 10:28 AM EDT Pulse 78 01/04/2025 10:28 AM EDT Temperature - - Respiratory Rate - - Oxygen Saturation 95% 01/04/2025 10:23 AM EDT Inhaled Oxygen Concentration - - Weight 93.9 kg (207 lb) 01/04/2025 10:23 AM EDT Height 154.9 cm (5' 1 ) 09/03/2023 3:26 PM EST Body Mass Index 39.11 09/03/2023 3:26 PM EST Plan of Treatment Upcoming Encounters Date Type Department Care Team (Late st Contact Info) Description 07/07/2025 1:30 PM EDT Office Visit [facility] [address] [place] [phone] Saray Urbano ARNP [address] [place] [phone] 11/25/2025 10:30 AM EST Office Visit [facility] [address] [phone] Saray Urbano ARNP [facility] [address] [phone] Health Maintenance Due Date Last Done Comments Breast Cancer Screening 1950 Colorectal Cancer Screening: Annual FOBT 2001 Colorectal Cancer Screening: Colonoscopy 2001 Colorectal Cancer Screening: Sigmoidoscopy 2001 Hepatitis B Vaccine (1 of 3 - Risk 3-dose series) 2012 12/08/2012, 07/07/2012, 06/05/2012 Influenza Vaccine (Season Ended) 2025 07/25/2022, 08/25/2019, 07/07/2012, Additional history exists Pneumococcal Vaccine: 50+ Years Completed 8, 08/26/2017 Procedures Procedure Name Priority Date/Time Associated Diagnosis Comments VITAMIN D 25 HYDROXY Routine 12/01/2024 3:40 PM EST URINE ALBUMIN / CREATININE RATIO Routine 12/01/2024 3:39 PM EST PROTEIN / CREATININE RATIO, URINE Routine 12/01/2024 3:39 PM EST BASIC METABOLIC PANEL Routine 12/01/2024 3:38 PM EST from Last 3 Months Results * Vitamin D 25 Hydroxy (12/01/2024 3:40 PM EST) Vitamin D, 25-OH, Total 43.0 30.0 - 100.0 ng/mL Venmo Comment: Vitamin D deficiency has been defined by the [place] of [employer] and an Endocrine Society practice guideline as a level of serum 25-OH vitamin D less than 20 ng/mL (1,2). The Endocrine Society went on to further define vitamin D insufficiency as a level between 21 and 29 ng/mL (2). 1. IOM ([place] of [employer]). 2010. Dietary reference ?? intakes for calcium and D. [place]: The ?? National [employer]. 2. Noelle MF, Sasha NC, Steve MARTE, et al. ?? Evaluation, treatment, and prevention of vitamin D ?? deficiency: an Endocrine Society clinical practice ?? guideline. JCEM. 2010; 96(7):1911-30. 12/01/2024 3:4 0 PM EST 12/01/2024 Saray Sundeep [facility] LAB BLOOD ORDERABLES Final Result [facility] [address] [place] [phone] * Protein, Total, Random Urine w/Creatinine (Protein/Creat Ratio) (12/01/2024 3:39 PM EST) Creatinine, Ur 133.5 Not Estab. mg/dL [facility] Protein, Ur 8.7 Not Estab. mg/dL [facility] Urine Protein/Creatin ine Ratio 65 0 - 200 mg/g creat [facility] 12/01/2024 3:39 PM EST 12/01/2024 Saray [facility] LAB URINE ORDERABLES Final Result Performing Organization Address City/[facility]/ZIP Co de Phone Number [facility] [address] [place] [phone] * Urine Albumin / Creatinine Ratio (12/01/2024 3:39 PM EST) Albumin, Urine 7.7 Not Estab. ug/mL [facility] Albumin/Creatin ine Ratio 6 0 - 29 mg/g creat [facility] Comment: ? Normal: ?0 - ??29 ? Moderately increased: 30 - 300 ? Severely increased: ? >300 12/01/2024 3:39 PM EST 12/01/2024 Saray [facility] LAB URINE ORDERABLES Final Result Performing Organization Address City/[facility] de Phone Number [facility] [address] [place] [phone] * (ABNORMAL) Basic Metabolic Panel (12/01/2024 3:38 PM EST) Glucose 114(H) 70 - 99 mg/dL [facility] BUN 14 8 - 27 mg/dL [facility] Sodium 143 134 - 144 mmol/L [facility] Potassium 4.9 3.5 - 5.2 mmol/L [facility] Chloride 103 96 - 106 mmol/L [facility] Bicarbonate (CO2) 21 20 - 29 mmol/L [facility] Calcium 9.7 8.7 - 10.3 mg/dL [facility] Creatinine 1.05(H) 0.57 - 1.00 mg/dL [facility] eGFR CKD-EPI CR 2020 56(L) >59 mL/min/1.7 3 [facility] BUN/Creatinine Ratio 13 12 28 [facility] 12/01/2024 3:38 PM EST 12/01/2024 us Saray RAMIREZ LAB BLOOD ORDERABLES Final Result [facility] [address] [place] [phone] from Last 3 Months Insurance Medicare [facility] Medicare [facility] Care Teams Search Planner Relationship Specialty Start Date End Date Anny Black NP [address] [place] [phone] PCP - General Nurse Practitioner 08/31/24
--- OUTSIDE RECORDS SUMMARY | 2025-02-09 01:52 | XMS_ITS ---
Author Organization [facility] Address [address] [place] [phone] Care Team Providers Care Last Repairer Helper Name Role Phone Manda Vitale Primary Care Provider U nae Keyshawn Rose Unavailable [phone] Allergies Allergen (clinical drug ingredient) Drug/Non Drug Allergy documented on EMR Reaction Allergy Type Onset Date Status Sulfa Unknown Drug Allergy Active Penicillin Unknown Drug Allergy Active REASON FOR VISIT Patient presents today for barretts esophagus Medications Medication SIG (Take, Route, Frequency, Duration) Notes Start Date End Date Status Omeprazole 20 MG 1 capsule 30 minutes before morning meal Orally Once a day for 30 day(s) 09/04/2023 Active Spironolactone 25 MG Oral for 90 Days Active Allergy 4 MG 1 tablet as needed Orally every 6 hrs 09/04/2023 Active Doxazosin Mesylate ER 4 MG 1 tablet with breakfast Orally Once a day for 30 day(s) 09/04/2023 Active Atorvastatin Calcium 40 MG TAKE 1 TABLET BY MOUTH EVERY DAY Oral for 90 Days Active Amlodipine & Diet Manage Prod 09/04/2023 Active ZyrTEC Active Hair/Skin/Nails/Biotin Active Vitamin D3 Active Citalopram Hydrobromide 30 MG 1 tablet Orally Once a day Active Losartan Potassium 50 MG 1 tablet Orally Once a day Active Synthroid 125 MCG 1 tablet in the morn ing on an empty stomach Orally Once a day Active Allopurinol 300 MG 1 tablet Orally Once a day Active Simvastatin 10 MG 1 tablet in the even ing Orally Once a day Active Problems Problem Type SNOMED Code ICD Code Onset Dates Problem Status W/U Status Risk Notes Problem Toro's esophagus (114113666) 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) Active confirmed Problem Gastroesophageal reflux disease (disorder) (348873958) Chronic GERD (K21.9) Active confirmed Vital Signs Temperature 97.3 degrees Fahrenheit 05/21/20 24 Blood pressure systolic 000 mm Hg 05/21/20 24 Blood pressure diastolic 00 mm Hg 024 Height 61.5 in 05/21/2024 Weight 223 lb 4 oz lbs 05/21/2024 BMI 41.50 kg/m2 05/21/2024 Encounters Encounter Location Date Provider Diagnosis [facility] [address] [place] [address] 05/21/2024 Keyshawn Rose 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 K22.70 ; Hiatal hernia K44.9 ; Chronic GERD K21.9 and Encounter for screening for malignant neoplasm of colon Z12.11 Assessments Encounter Date Diagnosis (ICD Code) Assessment Notes Treatment Notes Treatment Clinical Notes Section Notes 05/21/2024 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 (ICD-10 - K22.70) Repeat upper endoscopy in 12/2026 Continue daily omeprazole Overall, Jsesica appears well. We did review her upper endoscopy findings in detail. At this point she remains asymptomatic on her single dose of omeprazole. As such, I would recommend continuing this rather than undergoing surgery given what I feel would be a higher risk in relation to her obesity and other comorbidities. We did review the diagnosis of Toro's esophagus and the theoretical increased risk of esophageal cancer, albeit unlikely. We did review that certainly if her reflux symptoms were to worsen or she develops any other symptoms such as dysphagia or pain she should then let me know that. If things remains stable I advised her that I would recommend a repeat upper endoscopy with surveillance biopsies in 2026 when she has her next colonoscopy. We did review that we would probably want to do that procedure under general anesthesia for maximal safety in regard to her underlying sleep apnea and other issues. If things remains stable she would otherwise see me in the interim on a p.r.n. basis. Jessica was comfortable with the plan. Thank you again for allowing me to participate in Jessica's care. I shall continue to keep you advised of her progress as needed. 05/21/2024 Hiatal hernia (ICD-10 - K44.9) Overall, Jessica appears well. We did review her upper endoscopy findings in detail. At this point she remains asymptomatic on her single dose of omeprazole. As such, I would recommend continuing this rather than undergoing surgery given what I feel would be a higher risk in relation to her obesity and other comorbidities. We did review the diagnosis of Toro's esophagus and the theoretical increased risk of esophageal cancer, albeit unlikely. We did review that certainly if her reflux symptoms were to worsen or she develops any other symptoms such as dysphagia or pain she should then let me know that. If things remains stable I advised her that I would recommend a repeat upper endoscopy with surveillance biopsies in 2026 when she has her next colonoscopy. We did review that we would probably want to do that procedure under general anesthesia for maximal safety in regard to her underlying sleep apnea and other issues. If things remains stable she would otherwise see me in the interim on a p.r.n. basis. Jessica was comfortable with the plan. Thank you again for allowing me to participate in Jessica's care. I shall continue to keep you advised of her progress as needed. 05/21/2024 Chronic GERD (ICD-10 - K21.9) Overall, Jessica appears well. We did review her upper endoscopy findings in detail. At this point she remains asymptomatic on her single dose of omeprazole. As such, I would recommend continuing this rather than undergoing surgery given what I feel would be a higher risk in relation to her obesity and other comorbidities. We did review the diagnosis of Toro's esophagus and the theoretical increased risk of esophageal cancer, albeit unlikely. We did review that certainly if her reflux symptoms were to worsen or she develops any other symptoms such as dysphagia or pain she should then let me know that. If things remains stable I advised her that I would recommend a repeat upper endoscopy with surveillance biopsies in 2026 when she has her next colonoscopy. We did review that we would probably want to do that procedure under general anesthesia for maximal safety in regard to her underlying sleep apnea and other issues. If things remains stable she would otherwise see me in the interim on a p.r.n. basis. Jessica was comfortable with the plan. Thank you again for allowing me to participate in Jessica's care. I shall continue to keep you advised of her progress as needed. 05/21/2024 Encounter for screening for malignant neoplasm of colon (ICD-10 - Z12.11) Overall, Jessica appears well. We did review her upper endoscopy findings in detail. At this point she remains asymptomatic on her single dose of omeprazole. As such, I would recommend continuing this rather than undergoing surgery given what I feel would be a higher risk in relation to her obesity and other comorbidities. We did review the diagnosis of Toro's esophagus and the theoretical increased risk of esophageal cancer, albeit unlikely. We did review that certainly if her reflux symptoms were to worsen or she develops any other symptoms such as dysphagia or pain she should then let me know that. If things remains stable I advised her that I would recommend a repeat upper endoscopy with surveillance biopsies in 2026 when she has her next colonoscopy. We did review that we would probably want to do that procedure under general anesthesia for maximal safety in regard to her underlying sleep apnea and other issues. If things remains stable she would otherwise see me in the interim on a p.r.n. basis. Jessica was comfortable with the plan. Thank you again for allowing me to participate in Jessica's care. I shall continue to keep you advised of her progress as needed. Plan Of Treatment Treatment Notes Assessment Notes 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 Repeat upper endoscopy in 12/2026 Continue daily omeprazole Next Appt Details Follow Up: prn, Reason: Progress Notes * JESSICA CAUSEY ADOB: [birth year] (74 yo F)Acc No.[id number]:05/21/2024 Progress Notes Patient:?JESSICA CAUSEY Provider:?Keyshawn Rose MD :1950???Age:74 Y???Sex:Female D ate:05/21/2024 Address:[address] [place], [place] [id number] Pcp:Shawn Skinner Subjective: * Chief Complaints: * ???Patient presents today fo r barretts esophagus * HPI: ???incontinence:? I saw Jessica in followup today in regard to her chronic gastroesophageal reflux with associated Toro esophagus and large hiatal hernia. ?I last saw Jessica in August of 2023, at which time she underwent an upper endoscopy. This revealed her known large hiatal hernia as well as a small segment of Toro's mucosa. There was no evidence of any esophagitis and biopsies were negative for dysplasia. Since that procedure she is continued on her daily 20 mg omeprazole with continued good relief of reflux symptoms. She has not had any associated dysphagia, history of heartburn, early satiety, nausea, vomiting, nor any chest or abdominal pain. Her bowel movements have remained regular and without any signs of bleeding. ?She has not had any further followup with the surgeons at [facility] in regard to the previous discussions of Hiatal hernia and bariatric surgery. She advises me that the final decision at [facility] was that her hiatal hernia was not a paraesophageal hernia and did not require surgery in that regard. * ROS:?General/Constitutional:?Change in appetite?denies.?Chills?denies.?Fatigue?denies.?Ophthalmologic:?Comments?all negative.?ENT:?Comments?all negative.?Respiratory:?hemoptysis?denies.?Cough?denies.?Cardiovascular:?Chest pain?denies.?Orthopnea?denies.?Gastrointestinal:?Comments?See HPI for details.?Genitourinary:?Hematuria?denies.?Dysuria?denies.?Musculoskeletal:?Painful joints?denies.?Weakness?denies.?Skin:?Itching?denies.?Rash?denies.?Neurologic:?Headache?denies.?Seizures?denies.?Psychiatric:?Comments?as per PMH.? * Medical History:? * Surgical History:?No Surgica l History documented. * Hospitalization/Major Diagno stic Procedure:?No Hospitalization History. * Family History:?Father: dece ased, diagnosed with HTN (hypertension).?Mother: , diagnosed with Diabetes, Heart disease, HTN (hypertension).?Siblings: Brother with gastric cancer.? No known hx of colon cancer. no family history of liver cancer. * Social History:?Tobacco Use:?Tobacco Use/Smoking?Are you a: nonsmoker.?Drugs/Alcohol:?Alcohol Screen?Points: 1, Interpretation: Negative.?Miscellaneous:?Marital status: . Occupation: retired. ???Nonsmoker; no sig alcohol. * Medications:?TakingSimvastat in 10 MG Tablet 1 tablet in the evening Orally Once a dayLosartan Potassium 50 MG Tablet 1 tablet Orally Once a dayCitalopram Hydrobromide 30 MG Capsule 1 tablet Orally Once a dayAllopurinol 300 MG Tablet 1 tablet Orally Once a daySynthroid 125 MCG Tablet 1 tablet in the morning on an empty stomach Orally Once a dayVitamin D3 Hair/Skin/Nails/Biotin ZyrTEC Amlodipine & Diet Manage Prod Atorvastatin Calcium 40 MG Tablet TAKE 1 TABLET BY MOUTH EVERY DAY Oral Spironolactone 25 MG Tablet Oral Omeprazole 20 MG Capsule Delayed Release 1 capsule 30 minutes before morning meal Orally Once a dayDoxazosin Mesylate ER 4 MG Tablet Extended Release 24 Hour 1 tablet with breakfast Orally Once a dayAllergy 4 MG Tablet 1 tablet as needed Orally every 6 hrsTaking Simvastatin 10 MG Tablet 1 tablet in the evening Orally Once a dayTaking Losartan Potassium 50 MG Tablet 1 tablet Orally Once a dayTaking Citalopram Hydrobromide 30 MG Capsule 1 tablet Orally Once a dayTaking Allopurinol 300 MG Tablet 1 tablet Orally Once a dayTaking Synthroid 125 MCG Tablet 1 tablet in the morning on an empty stomach Orally Once a dayTaking Vitamin D3 Taking Hair/Skin/Nails/Biotin Taking ZyrTEC Taking Amlodipine & Diet Manage Prod Taking Atorvastatin Calcium 40 MG Tablet TAKE 1 TABLET BY MOUTH EVERY DAY Oral Taking Spironolactone 25 MG Tablet Oral Taking Omeprazole 20 MG Capsule Delayed Release 1 capsule 30 minutes before morning meal Orally Once a dayTaking Doxazosin Mesylate ER 4 MG Tablet Extended Release 24 Hour 1 tablet with breakfast Orally Once a dayTaking Allergy 4 MG Tablet 1 tablet as needed Orally every 6 hrsDiscontinuedColace Zantac Medication List reviewed and reconciled with the patientDiscontinued Colace Discontinued Zantac Medication List reviewed and reconciled with the patient * Allergies:?PenicillinSulfaye s[Allergies Verified] Objective: * Vitals:?Wt: 223 lb 4 oz, Ht: 61.5 in, BMI:41.50 Index, BP: 000/00 mm Hg, Temp: 97.3. * Examination: ???General Examination: ?GENERAL APPEARANCE:?pleasant, well nourished, well developed, in no acute distress.?EYES:?sclera non-icteric.?ORAL CAVITY:?mucosa moist.?NECK/THYROID:?no cervical lymphadenopathy, neck supple.?SKIN:?nonjaundiced, no spider angiomata.?HEART:?S1, S2 normal.?LUNGS:?clear to auscultation bilaterally.?ABDOMEN:?normal bowel sounds, no guarding or rigidity, no guarding or rigidity, no masses palpable, soft, nontender, nondistended.?EXTREMITIES:?no edema.?NEUROLOGIC:?alert and oriented.? Assessment: * Assessment: 1.?Toro''s esophagus with out dysplasia - K22.70 (Primary)?2.?Hiatal hernia - K44.9?3.?Chronic GERD - K21.9?4.?Encounter for screening for malignant neoplasm of colon - Z12.11? Overall, Jessica appears well. We did review her upper endoscopy findings in detail. At this point she remains asymptomatic on her single dose of omeprazole. As such, I would recommend continuing this rather than undergoing surgery given what I feel would be a higher risk in relation to her obesity and other comorbidities. We did review the diagnosis of Toro's esophagus and the theoretical increased risk of esophageal cancer, albeit unlikely. We did review that certainly if her reflux symptoms were to worsen or she develops any other symptoms such as dysphagia or pain she should then let me know that. If things remains stable I advised her that I would recommend a repeat upper endoscopy with surveillance biopsies in 2026 when she has her next colonoscopy. We did review that we would probably want to do that procedure under general anesthesia for maximal safety in regard to her underlying sleep apnea and other issues. If things remains stable she would otherwise see me in the interim on a p.r.n. basis. Jessica was comfortable with the plan. Thank you again for allowing me to participate in Jessica's care. I shall continue to keep you advised of her progress as needed. Plan: * Treatment: * Procedure Codes:?3017F COLOR ECTAL CA SCREEN DOC [id number] TOBACCO [id number] BP SCR NOT PRFRM REC REASON NOS * Preventive Medicine:? ??Counseling:?Care goal follow-up plan:?Above Normal BMI Follow-up?Giving encouragement to exercise,?BMI management provided?Yes.? ??Urinary Incontinence:?Urinary Incontinence?Assessment:?Absent.? ??Screenings:?Fall Risk Screening?Fall Risk Assessment:?No falls in the past year.? * Follow Up:?prn * * Sign off status: Completed true * Provider:?Keyshawn Rose MD Date:? 024 Generated for Ramonita peñaloza/Damian/Josesmitting on:?02/09/2025 01:52 AM EDT History and Physical Notes * HPI (History of Present Illness) Category Sub-Category Detail Notes Category Not es incontinence I saw Jessica in followup today in regard to her chronic gastroesophageal reflux with associated Toro esophagus and large hiatal hernia. I last saw Jessica in August of 2023, at which time she underwent an upper endoscopy. This revealed her known large hiatal hernia as well as a small segment of Toro's mucosa. There was no evidence of any esophagitis and biopsies were negative for dysplasia. Since that procedure she is continued on her daily 20 mg omeprazole with continued good relief of reflux symptoms. She has not had any associated dysphagia, history of heartburn, early satiety, nausea, vomiting, nor any chest or abdominal pain. Her bowel movements have remained regular and without any signs of bleeding. She has not had any further followup with the surgeons at [facility] in regard to the previous discussions of Hiatal hernia and bariatric surgery. She advises me that the final decision at [facility] was that her hiatal hernia was not a paraesophageal hernia and did not require surgery in that regard. Examination Category Sub-Category Detail Notes Category Not es General Examination GENERAL APPEARANCE: pleasant , well nourished, well developed, in no acute distress HEAD: EYES: sclera non-icteric EARS: NOSE: THROAT: NECK/THYROID: no cervical lymphade nopathy, neck supple HEART: S1, S2 normal CHEST: LUNGS: clear to auscultatio n bilaterally ABDOMEN: normal bowel sounds, no guarding or rigidity, no guarding or rigidity, no masses palpable, soft, nontender, nondistended NEUROLOGIC: alert and oriented SKIN: nonjaundiced, no spi dean angiomata EXTREMITIES: no edema PERIPHERAL PULSES: BACK: BREASTS: MUSCULOSKELETAL: MALE GENITOURINARY: LYMPH NODES: RECTAL EXAM: FEMALE GENITOURINARY: ORAL CAVITY: mucosa moist
--- OUTSIDE RECORDS SUMMARY | 2025-02-09 01:52 | XMS_ITS | Patient Health Record ---
Author Organization [facility] Address [address] [place] [phone] Care Team Providers Care It Security Consultant Name Role Phone Manda Vitale Primary Care Provider U nae Keyshawn Rose Unavailable [phone] Allergies Allergen (clinical drug ingredient) Drug/Non Drug Allergy documented on EMR Reaction Allergy Type Onset Date Status Sulfa Unknown Drug Allergy Active Penicillin Unknown Drug Allergy Active Reason For Referral No Information Medications Medication SIG (Take, Route, Frequency, Duration) Notes Start Date End Date Status Amlodipine & Diet Manage Prod 09/04/2023 Active ZyrTEC Active Simvastatin 10 MG 1 tablet in the even ing Orally Once a day Active Vitamin D3 Active Hair/Skin/Nails/Biotin Active Citalopram Hydrobromide 30 MG 1 tablet Orally Once a day Active Omeprazole 20 MG 1 capsule 30 minutes before morning meal Orally Once a day for 30 day(s) 09/04/2023 Active Losartan Potassium 50 MG 1 tablet Orally Once a day Active Spironolactone 25 MG Oral for 90 Days Active Synthroid 125 MCG 1 tablet in the morn ing on an empty stomach Orally Once a day Active Allergy 4 MG 1 tablet as needed Orally every 6 hrs 09/04/2023 Active Allopurinol 300 MG 1 tablet Orally Once a day Active Doxazosin Mesylate ER 4 MG 1 tablet with breakfast Orally Once a day for 30 day(s) 09/04/2023 Active Atorvastatin Calcium 40 MG TAKE 1 TABLET BY MOUTH EVERY DAY Oral for 90 Days Active Immunizations Vaccine Route Administration Date Status Comme nts Influenza Unknown 08/28/2023 Administered Problems Problem Type SNOMED Code ICD Code Onset Dates Problem Status W/U Status Risk Notes Problem 877875330 Encounter for screening for malignant neoplasm of colon (Z12.11) Active confirmed Problem 29290793 Irritable bowel syndrome without diarrhea (K58.9) Active confirmed Problem Screening for malignant neoplasm of rectum (337802012) Encounter for screening for malignant neoplasm of rectum (Z12.12) Active confirmed Problem Gastroesophageal reflux disease (813711536) Gastroesophageal reflux disease (K21.9) Active confirmed Problem 38295817 Hiatal hernia (K44.9) Active confirmed Problem Gastritis (0907286) Gastritis (K29.70) Active c onfirmed Problem Toro's esophagus (961595464) 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) Active confirmed Problem 994970009 Gastroesophageal reflux disease, unspecified whether esophagitis present (K21.9) Active confirmed Problem Gastroesophageal reflux disease (disorder) (527650742) Chronic GERD (K21.9) Active confirmed Vital Signs Temperature 97.3 degrees Fahrenheit 05/21/2024 Blood pressure diastolic 00 mm Hg 05/21/2024 Height 61.5 in 05/21/2024 Blood pressure systolic 000 mm Hg 05/21/2024 Weight 223 lb 4 oz lbs 05/21/2024 BMI 41.50 kg/m2 05/21/2024 Encounters Encounter Location Date Provider Diagnosis [facility] [address] [place] [phone] 05/21/2024 Keyshawn Rose 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 K22.70 ; Hiatal hernia K44.9 ; Chronic GERD K21.9 and Encounter for screening for malignant neoplasm of colon Z12.11 Assessments Encounter Date Diagnosis (ICD Code) Assessment Notes Treatment Notes Treatment Clinical Notes Section Notes 05/21/2024 Hiatal hernia (ICD-10 - K44.9) Overall, [...] advised of her progress as needed. 05/21/2024 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 (ICD-10 - K22.70) Repeat upper endoscopy in 12/2026 Continue daily omeprazole Overall, Jessica appears well. We did review [...] her progress as needed. Plan Of Treatment Pending Test Test Name Order Date CELIAC PANEL #10 03/01/2016 Future Test Test Name Order Date COLONOSCOPY 03/01/2016 UPPER GI ENDOSCOPY 09/04/2023 Insurance Providers Payer Name Payer Address Payer Phone Subscriber Number Group Number Insured Name Patient Relationship to Insured Coverage Start Date Coverage End Date MEDICARE OF [place] [address] [place] [address] [id number] JESSICA CAUSEY Self - patient is the insured [employer] ATT[employer] CLAIMS [address] [place] [address] [id number] JESSICA CAUSEY Self - patient is the insured Medical (General) History Medical History History ICD Code Colonoscopy 08-20-2003--neg except for diverticulosis and small internal hemorhoids IBS Hypothyroidism Hypertension Denies [place],DM,CVA,Lung disease,renal dise ase Hyperlipidemia GERD Allergies Gout Depression Hernia K46.9 Negative screening colonoscopy in 12/2016 Saw surgeons at [facility] for her hiatal hernia but opted to hold off on any type of surgical intervention. The surgeons felt this was a moderately large sliding hiatal hernia without any paraesophageal component Sleep apnea-uses CPAP EGD 08/2023 revealed her lar ge hiatal hernia and a small segment of Toro's esophagus, with biopsies negative for dysplasia. There was no esophagitis. Surgical History Surgery Date(Month/Year)
--- OUTSIDE RECORDS SUMMARY | 2025-02-09 01:52 | XMS_ITS ---
Author Organization [facility] Address [address] [place] [phone] Care Team Providers Care Nuclear Station Operator Name Role Phone Manda Vitale Primary Care Provider U Keyshawn Hickman [phone] REASON FOR VISIT Patient presents today for Toro's Esophagus Encounters Encounter Location Date Provider Diagnosis [facility] [address] [place] [phone] 01/21/2024 Keyshawn Rose Plan Of Treatment No Information Progress Notes * JESSICA CAUSEY ADOB: (74 yo F)Acc No.[id number]:01/21/2024 Progress Notes Patient:JESSICA HEAD Provider:?Keyshawn Rose MD :1950???Age:73 Y???Sex:Female D ate:01/21/2024 Address:[address] [place], [place] [id number] Pcp:Shawn Skinner Subjective: * Chief Complaints: * ???1. Patient presents today for Toro's Esophagus. * Medical History:? Objective: * Vitals:? Assessment: Plan: * Treatment: * * The named appointment provid er may or may not be the originator of this progress note, and it is not deemed complete until electronically signed by the appointment provider. Sign off status: Pending * Provider:?Keyshawn Rose MD Date:? 024 Generated for Ramonita peñaloza/Damian/eTransmitting on:?02/09/2025 01:51 AM EDT
[2025-02-09 02:48] VITALS: RESP 14
[2025-02-09] MEDS: Morphine Sulfate 4 MG/ML CARTRIDGE IVPUSH (02:48)
[2025-02-09] MEDS: ondansetron HCL 4 MG/2 ML VIAL IVPUSH (02:49)
--- NOTE | 2025-02-09 02:56 | ED.CHESTPAIN ---
HPI - Chest Pain General Chief Complaint: Chest Pain Stated Complaint: Chest Pain started at 8pm Time Seen by Provider: 02/09/25 02:16 Source: patient Mode of arrival: ambulatory Limitations: no limitations History of Present Illness ED Provider: HPI narrative: Patient's history of hypertension sleep apnea hypothyroidism anxiety no known coronary artery disease comes here for having pain in the mid chest since 20:00 lasted for half an hour and got better then came back again radiating to the both sides of the chest to the neck and left upper back reproducible on palpation and movement Related Data Home Medications ?Medication ?Instructions ?Recorded ?Confirmed allopurinol 300 mg tablet 300 mg PO DAILY 09/16/23 09/16/23 amlodipine 5 mg tablet 5 mg PO DAILY 09/16/23 09/16/23 atorvastatin 40 mg tablet 40 mg PO DAILY 09/16/23 09/16/23 cetirizine 10 mg tablet (Zyrtec) 10 mg PO DAILY 09/16/23 09/16/23 cholecalciferol (vitamin D3) 50 50 mcg PO DAILY 09/16/23 09/16/23 mcg (2,000 unit) capsule (Vitamin D3) citalopram 20 mg tablet 20 mg PO DAILY 09/16/23 09/16/23 doxazosin 2 mg tablet 2 mg PO BEDTIME 09/16/23 09/16/23 levothyroxine 125 mcg tablet 125 mcg PO DAILY 09/16/23 09/16/23 (Synthroid) losartan 50 mg tablet 75 mg PO DAILY 09/16/23 09/16/23 multivitamin 1 tab PO DAILY 09/16/23 09/16/23 omeprazole 20 mg capsule,delayed 20 mg PO DAILY 09/16/23 09/16/23 release spironolactone 25 mg tablet 25 mg PO DAILY 09/16/23 09/16/23 Allergies Allergy/AdvReac Type Severity Reaction Status Date / Time penicillin G [PENICILLIN G] Allergy Severe TONGUE Verified 02/09/25 00:34 SWELLED AT AGE OF [age] YEAR OLD Sulfa (Sulfonamide Allergy Intermediate ITCHY, Verified 02/09/25 00:34 Antibiotics) hives [SULFA (SULFONAMIDE ANTIBIOTICS)] Review of Systems Review of Systems: Yes all other systems are reviewed and are negative PMFSH Past Medical History Medical History (Updated 02/09/25 @ 04:11 by Gómez Swan MD) IBS (irritable bowel syndrome) YNES on CPAP Seasonal allergies Anxiety GERD (gastroesophageal reflux disease) High cholesterol HTN (hypertension) Hypothyroid Surgical History (Updated 09/16/23 @ 16:24 by Suzette Ram, RN) Hx of colonoscopy Social History Social History (Updated 09/16/23 @ 16:45 by Suzette Ram, RN) Are you a primary medical care administrator to a significant other at home: No Do you presently have visiting nurse or other home services: No Patient Tobacco Use Status: Never used Tobacco Smoked in Last 30 Days: No Use of substances other than those prescribed or required for medical reasons: No Advance Directives: No Advance Directives Information Provided: Yes Do you have a plan to hurt others: No Plan Physical Exam Vital Signs: Vital Signs: Last Vital Signs Temp 97.8 F 02/09/25 03:49 Pulse 84 02/09/25 03:49 Resp 16 02/09/25 03:49 BP 145/62 H 02/09/25 03:49 Pulse Ox 92 02/09/25 03:50 O2 Del Method Nasal Cannula 02/09/25 03:50 O2 Flow Rate 1 02/09/25 03:50 BMI result Body Mass Index 40.5 Appearance: Alert. Oriented X3. No acute distress. Eyes: No pallor or icterus ENT: Pharynx normal. Oral Mucosa moist Neck: Normal inspection. Neck supple. CVS: Normal heart rate and rhythm. Pulses normal. Respiratory: No respiratory distress. Equal air entry bilateral, no wheezing/rales/rhonchi Abdomen: Soft and nontender. Bowel sounds are present, no mass palpable, no CVA tenderness Skin: Skin warm and dry. Normal skin color. Normal skin turgor. Extremities: No lower extremity edema. No calf tenderness Neuro: Oriented X 3. No motor deficit. No sensory deficit.No cerebellar signs , cranial nerves II-XII intact Medications Administered Discontinued Medications Generic Name Dose Route Start Last Admin Trade Name Freq PRN Reason Stop Dose Admin Morphine Sulfate 4 mg 02/09/25 02:40 02/09/25 02:48 Morphine Sulfate 4 Mg/Ml Cartridge IVPUSH 02/09/25 02:41 4 mg ONCE ONE Administration Protocol Ondansetron HCl 4 mg 02/09/25 02:40 02/09/25 02:49 Ondansetron Hcl 4 Mg/2 Ml Vial IVPUSH 02/09/25 02:41 4 mg ONCE ONE Administration Medical Decision Making Medical Decision Making [facility] Narrative: Patient has atypical chest pain 2 sets of cardiac enzymes negative no acute ischemic changes in the EKG patient is requesting pain medication for upper back pain and improved after pain medication was given patient advised to follow with PCP Differential Diagnosis Differential Diagnoses: The differential diagnosis associated with the presentation includes ACS/musculoskeletal/anxiety/pneumonia/pneumothorax/pleurisy Lab Data [facility] Lab Attestation statement: I reviewed the patient's lab results. 02/09/25 01:10 02/09/25 01:02 Labs: Lab Results 02/09/25 02/09/25 02/09/25 Range/Units 01:02 01:10 02:59 WBC 9.0 (4.8-10.8) X10*3/uL RBC 4.41 (4.20-5.50) X10*6/uL Hgb 13.7 (12.0-16.0) g/dl Hct 43.0 (37.0-47.0) % MCV 97.5 (80.0-98.0) fL MCH 31.1 (27.0-33.0) pg MCHC 31.9 (31.0-35.0) g/dl RDW 14.2 (11.0-16.0) % Plt Count 347 (160-400) X10*3/uL MPV 10.6 (9.4-12.3) fL Immature Gran % (Auto) 0.2 (0.0-0.4) % Neut % (Auto) 59.3 (45-73) % Lymph % (Auto) 32.6 (20-40) % Wheeler % (Auto) 5.7 (2-11) % Eos % (Auto) 1.4 (0-4) % Baso % (Auto) 0.8 (0-2) % Lymph # (Auto) 2.9 (1.2-4.9) X10*3/uL Wheeler # (Auto) 0.5 (0.1-1.2) X10*3/uL Eos # (Auto) 0.1 (0.0-0.4) X10*3/uL Baso # (Auto) 0.1 (0.0-0.2) X10*3/uL Abs Immat Gran (auto) 0.02 (0.00-0.03) X10*3/uL Absolute Neuts (auto) 5.4 (2.0-8.3) x10*3/uL Absolute Nucleated RBC 0.000 (0.0-0.012) X10*3/uL Nucleated RBC % (auto) 0.0 (0.0-0.2) /100WBC Sodium 140 (135-145) mmol/L Potassium 4.6 (3.3-5.1) mmol/L Chloride 110 H (96-108) mmol/L Carbon Dioxide 17 L (22-29) mmol/L Anion Gap 18 (12-20) BUN 18 H (9-16) mg/dL Creatinine 0.92 (0.5-1.4) mg/dL Estim Creat Clear Calc 58.9 Estimated GFR > 60 Random Glucose 140 H (60-115) mg/dL Calcium 9.7 (8.4-10.2) mg/dL Total Bilirubin 0.6 (0.0-1.0) mg/dL AST 42 H (5-31) U/L ALT 28 (0-31) U/L Alkaline Phosphatase 99 (39-117) U/L Troponin I High Sens < 2.7 < 2.7 (<3.5-17.0) ng/L Total Protein 7.6 (6.5-8.0) g/dL Albumin 4.3 (3.5-5.0) g/dL Independent Interpretation I performed an independent interpretation of an: EKG Interpretation: Normal sinus rhythm heart rate 80 beats per minute normal intervals normal axis no acute STT changes impression normal EKG Discharge Plan Discharge Clinical Impression: Chest pain Patient Disposition: Home, Self-Care Instructions: Chest Pain (ED) Additional Instructions: At this time there is no evidence of cardiac injury Follow up with your PCP for further management including echo and stress test Prescriptions: No Action losartan 50 mg tablet 75 mg PO DAILY atorvastatin 40 mg tablet 40 mg PO DAILY amlodipine 5 mg tablet 5 mg PO DAILY spironolactone 25 mg tablet 25 mg PO DAILY citalopram 20 mg tablet 20 mg PO DAILY levothyroxine [Synthroid] 125 mcg tablet 125 mcg PO DAILY omeprazole 20 mg capsule,delayed release(DR/EC) 20 mg PO DAILY allopurinol 300 mg tablet 300 mg PO DAILY doxazosin 2 mg tablet 2 mg PO BEDTIME multivitamin Tablet 1 tab PO DAILY cetirizine [Zyrtec] 10 mg Tablet 10 mg PO DAILY cholecalciferol (vitamin D3) [Vitamin D3] 50 mcg (2,000 unit) Capsule 50 mcg PO DAILY Print Language: Ukrainian
--- NOTE | 2025-02-09 03:02 | PC.NURSE ---
Patient medicated per MAR, repeat Trop drawn and sent to lab.
[2025-02-09 03:29] LABS: Troponin-I High Sensitivity < 2.7 ng/L (<3.5-17.0)
[2025-02-09 03:49] VITALS: BP 145/62; PULSE 84; RESP 16; TEMP 36.6; O2SAT 89
[2025-02-09 03:50] VITALS: O2SAT 92
--- NOTE | 2025-02-09 04:26 | PC.NURSE ---
O2 Sat 94-95% on 1 LPM. Supplemental O2 d/ed. Patient maintaining stable O2 Sat 92-93% RA. Patient denies chest pain/SOB at present, VSS.
[2025-02-09 04:41] VITALS: BP 145/62; PULSE 84; RESP 16; TEMP 36.6; O2SAT 93
== END 2025-02-09 04:42 | disposition home or self-care (01) ==
PROVIDERS: Emergency Provider Internal Medicine; PCP Nurse Practitioner Family
DX: R07.9 Chest pain, unspecified (principal); I10 Essential (primary) hypertension; E03.9 Hypothyroidism, unspecified
CPT/HCPCS: 36415; 80053; 84484; 85025; 93005; 96374; 96375; 99284; 99285; J2270; J2405

== ENCOUNTER → 2025-02-09 00:33 | Outpatient (BNV) | payer MEDICARE, SELFPAY | PROVIDERS: Emergency Provider Internal Medicine; PCP Nurse Practitioner Family; Visit Provider Internal Medicine Cardiovascular Disease | DX: R07.89 Other chest pain (principal) | CPT/HCPCS: 93010 ==

== ENCOUNTER 2025-04-22 14:20 | Outpatient (AMB) | payer MEDICARE, SELFPAY ==
--- OUTSIDE RECORDS SUMMARY | 2023-10-23 10:40 | XMS_ITS ---
Author Organization [facility] Address [address] [place] [id number] Care Team Providers Care Chief Deputy Court Clerk Name Role Phone Manda Vitale Primary Care Provider U Keyshawn Hickman [phone] REASON FOR VISIT gerd,hiatal hernia Encounters Encounter Location Date Provider [place] [facility] [place] [facility] [address] [place] [id number] 10/23/2023 Keyshawn Rose Plan Of Treatment No Information Progress Notes * JESSICA CAUSEY ADOB: 2 (75 yo F)Acc No.[id number]:10/23/2023 EGD/MAC Patient: JESSICA TARANGO Provider: Flo Rose MD :1950 A ge:73 Y S ex:Female Date:10/23/2023 Address:[address] [place], [place] [id number] Pcp:Shawn Skinner Subjective: * Chief Complaints: * 1 . Gerd,hiatal hernia. * Medical History: Objective: * Vitals: Assessment: Plan: * Treatment: * * The named appointment provid er may or may not be the originator of this progress note, and it is not deemed complete until electronically signed by the appointment provider. Sign off status: Pending * Provider: Flo Rose MD Date: 1 12/24/2022 Generated for Printi jh/Damian/eTransmitting on: 0 04/22/2025 05:29 PM EDT
[2025-04-22 14:24] VITALS: BP 110/62; PULSE 80; TEMP 37; O2SAT 96; BMI 39.1
--- NOTE | 2025-04-22 14:24 | AM.OFFWIN_ITS ---
Intake Vital Signs 04/22/25 14:24 Height 5 ft 1 in Weight 207 lb BMI 39.1 BP 110/62 Blood Pressure Location Rt brachial Position Sitting Pulse 80 Pulse Source Pulse Oximeter Temp 98.6 F Temp Source Oral Pulse Oximetry (%) 96 Oxygen Delivery Method Room Air Intake Visit Reasons: EP ? LT ear infection Intake Note: pt presents with left ear pain radiating down left side of face to her neck, symptoms began yesterday. Thinks she may have gotten water in her ear during showering. PT denies headache, dizziness Patient Tobacco Use Status: Never used Tobacco Allergies penicillin G (PENICILLIN G) Allergy (Severe, Verified 04/22/25 14:33) TONGUE SWELLED AT AGE OF [age] YEAR OLD Sulfa (Sulfonamide Antibiotics) (SULFA (SULFONAMIDE ANTIBIOTICS)) Allergy (Intermediate, Verified 04/22/25 14:33) ITCHY, hives Do you need a note to return to daycare/school/sports/work: No HPI HPI Comments History of Present Illness Details History - The patient is a 75-year-old female pr esenting with left ear pain. - The left ear pain began yesterday, pot entially due to water exposure during a shower. - The pain is confined to the left side, with no additional symptoms such as headaches or dizziness. - The patient experiences a sore throat but denies other cold symptoms or systemic issues. - She uses Zyrtec for allergy management but does not take other allergy medications. - She denies fever, chills, CP, SOB, abd pain, n/v/d, runny nose, congestion, or cough. Physical Exam General: Cooperative, healthy appearing, comfortable and no acute distress Orientation/consciousness: Patient oriented x3 Ears: Hearing grossly normal bilaterally, external ears normal. Left ear with a little bit of fluid behind the TM. No cerumen noted. Nose: Normal external nose present, normal nares present, and no nasal discharge present. Face and sinus: Sinuses nontender to palpation. Mouth: Normal oral and palatal mucosa present and moist mucous membranes noted. Throat: Tonsils normal. Uvula is midline. Posterior oropharynx with erythema and no exudates. Neck: Normal visual inspection, full ROM. No lymphadenopathy noted. Respiratory: Clear to auscultation bilaterally. Normal respiratory effort, able to speak in complete sentences. No respiratory distress, not tachypneic, no tripod positioning and no use of accessory muscles. Cardiovascular: Regular rate and rhythm. Normal S1 and S2 Skin: No rashes or lesions noted Patient was informed and verbally consented to the use of an ambient scribe for clinic note documentation during this visit [facility] Medical History (Updated 02/10/25 @ 00:00 by Keisha Nelson) IBS (irritable bowel syndrome) YNES on CPAP Seasonal allergies Anxiety GERD (gastroesophageal reflux disease) High cholesterol HTN (hypertension) Hypothyroid Surgical History (Updated 09/16/23 @ 16:24 by Suzette Ram, RN) Hx of colonoscopy Social History (Updated 09/16/23 @ 16:45 by Suzette Ram, BANG) Are you a primary animal caretaker supervisor to a significant other at home: No Do you presently have visiting nurse or other home services: No Patient Tobacco Use Status: Never used Tobacco Review of Systems Const All systems reviewed & are unremarkable except as noted in HPI and below Physical Exam Vital Signs: Last Vital Signs Temp 98.6 F 04/22/25 14:24 Pulse 80 04/22/25 14:24 BP 110/62 04/22/25 14:24 Pulse Ox 96 04/22/25 14:24 Oxygen Delivery Method Room Air 04/22/25 14:24 BMI result Body Mass Index 39.1 Assessment & Plan Assessment & Plan (1) Left ear pain: Code(s): H92.02 - Otalgia, left ear Plan Plan - Initiate Flonase nasal spray for symptom relief. - Continue with Zyrtec - Tylenol or Motrin as needed - Avoid water in the ears - Follow up with PCP Medications: New fluticasone propionate 50 mcg/actuation administer into each nostril 1 spray intranasal Q12H 16 grams 0RF Coding Level of Care Code Est Pt Level 3 (82414) Diagnoses Left ear pain H92.02
== END 2025-04-22 14:54 | disposition home or self-care (01) ==
PROVIDERS: PCP Nurse Practitioner Family; Visit Provider Physician Assistant Medical
DX: H92.02 Otalgia, left ear (principal)

== ENCOUNTER → 2025-04-22 14:20 | Outpatient (BNVA) | payer MEDICARE, SELFPAY | PROVIDERS: PCP Nurse Practitioner Family; Visit Provider Physician Assistant Medical | DX: H92.02 Otalgia, left ear (principal) | CPT/HCPCS: 99212 ==

== ENCOUNTER 2025-08-28 14:20 | Emergency (ER) | payer MEDICARE, SELFPAY ==
--- NOTE | ~2025-08-28 | CT_ITS ---
CLINICAL HISTORY: fall CT cervical spine without contrast Comparison: None provided Findings: Vertebral alignment is within normal limits. Mild degenerative changes. No acute fractures or dislocations. Visualized intracranial contents are unremarkable. Calcification in the left thyroid lobe. No consolidation or effusion at the lung apices. IMPRESSION: No acute findings. This document has been electronically signed by: Toney Livingston MD on 08/28/2025 18:44:36
--- NOTE | ~2025-08-28 | XR_ITS ---
CLINICAL HISTORY: fall 2 view left humerus Comparison: None provided Findings: Mildly displaced fracture of the humeral head. Distal humerus is intact. Glenohumeral alignment is intact. IMPRESSION: 1. Mildly displaced fracture of the left humeral head. This document has been electronically signed by: Toney Livingston MD on 08/28/2025 18:46:04
--- NOTE | ~2025-08-28 | XR_ITS ---
CLINICAL HISTORY: fall 2 view left elbow Comparison: None provided Findings: Bones intact. No dislocations. No significant loss of joint space, osteophytes, or erosions. No joint effusion. No radiopaque foreign body. IMPRESSION: 1. No acute findings. This document has been electronically signed by: Toney Livingston MD on 08/28/2025 18:44:19
--- NOTE | ~2025-08-28 | CT_ITS ---
CLINICAL HISTORY: fall CT head without contrast Comparison: None provided Findings: No intra-axial mass, midline shift, hydrocephalus, or acute hemorrhage. No significant atrophy-like change or white matter disease. Intracranial atherosclerosis. There is no sinus or mastoid fluid. Left frontal and periorbital hematoma. There is no acute fracture. IMPRESSION: No acute intracranial findings. Left frontal and periorbital hematoma. This document has been electronically signed by: Toney Livingston MD on 08/28/2025 18:40:40
--- NOTE | ~2025-08-28 | CT_ITS ---
CLINICAL HISTORY: fall CT maxillofacial without contrast Comparison: None provided Findings: No acute fractures. No dislocations. Temporomandibular joints are intact. Paranasal sinuses and mastoid air cells clear. Left frontal and periorbital hematoma. Intraorbital contents are within normal limits. Visualized intracranial contents are within normal limits. No foreign bodies. IMPRESSION: 1. Left frontal and periorbital hematoma. 2. No acute maxillofacial fracture or dislocation. This document has been electronically signed by: Toney Livingston MD on 08/28/2025 18:37:18
[2025-08-28 14:29] VITALS: BP 167/86; PULSE 75
[2025-08-28 14:30] VITALS: BP 167/86; PULSE 75; O2SAT 100
[2025-08-28 14:34] VITALS: BP 175/64; PULSE 74; RESP 18; TEMP 36.6; O2SAT 97; BMI 39.8
--- OUTSIDE RECORDS SUMMARY | 2025-08-28 14:52 | XMS_ITS | Encounter Summary ---
Author Organization [facility] Address [address] [place] [id number] Phone Care Team Providers Care Water System Operator Name Role Phone Manda Mcfadden Primary Care Provider [phone] Anny Black NP Primary Care Provider [phone] Encounter Details Date Type Department Care Team (Late st Contact Info) Description 11/28/2023 Procedure Pass [facility] Endoscopy Admitting Dept Virtual Department [address] [place] [address] Social History Tobacco Use Types Packs/Day Years Used Date Smoking Tobacco: Never Smokeless Tobacco: Never Education Answer Date Recorded Are you interested in more education? Not on satnam e 02/22/2023 Are you concerned about learning? Not on file 02/22/2023 No 02/22/2023 No 02/22/2023 Digital Access Answer Date Recorded No 03/26/2023 No 03/26/2023 Reliable internet access at home? Not on file 03/26/2023 Device with a working camera? Not on file Comments Unknown Sex and Gender Information Value Date Recorded Sex Assigned at Female 07/26/2022 4:20 PM EDT Legal Sex Female 4:17 PM EDT Gender Identity Female 07/26/2022 4:20 PM EDT Sexual Orientation Straight 07/26/2022 4: 20 PM EDT documented as of this encounter Plan of Treatment Not on file documented as of this encounter Visit Diagnoses Not on filedocumented in this encounter Care Teams Water System Operator Relationship Specialty Start Date End Date Manda Mcfadden PA [address] [place] [address] PCP - General 07/26/22 04/01/25 Anny Black NP [address] [place] [address] PCP - General Nurse Practitioner 04/02/25 documented as of this encounter Additional Source Comments The information contained in this document represents components of the legal health record. It is not the complete legal health record.[facility]
--- OUTSIDE RECORDS SUMMARY | 2025-08-28 14:52 | XMS_ITS | Patient Health Record ---
Author Organization [facility] [place] Address [address] [place] [address] Care Team Providers Care Mandrel Press Hand Name Role Phone Hi Berry MD Primary Care Provider UnavailMichael Brush Unavailable [phone] Allergies Allergen (clinical drug ingredient) Drug/Non Drug Allergy documented on EMR Reaction Allergy Type Onset Date Status sulfa hives/itchiness Drug Allergy A ctive Penicillin swollen tongue/thrush Drug Allergy Active Reason For Referral No Information Medications Medication SIG (Take, Route, Frequency, Duration) Notes Start Date End Date Status Synthroid 137 MCG TAKE 1 TABLET BY SENDY TH EVERY DAY Oral; Duration: 90 Active Allopurinol 300 MG TAKE 1 TABLET BY SENDY TH EVERY DAY Oral; Duration: 90 Active Losartan Potassium 50 MG TAKE 1 TABLET B Y MOUTH EVERY DAY Oral; Duration: 90 Active Citalopram Hydrobromide 20 MG TAKE 1 TABLET BY MOUTH EVERY DAY Oral; Duration: 90 Active Vitamin D3 1000 UNIT 1 capsule Orally On ce a day Active Zantac 150 MG 1 tablet at bedtime Orally Once a day Active ZyrTEC Active Simvastatin 10 MG TAKE 1 TABLET BY SENDY TH EVERYDAY AT BEDTIME Oral; Duration: 90 Active Antacid 500 MG 1 tablet Orally Once a day Active Probiotic - Orally Active Centrum - Orally Active Social History Tobacco Use: Social History Observation Description Date Details (start date - stop date) Never Smoker NA - NA Tobacco Use/Smoking Question Answer Notes Are you a: nonsmoker Additional Findings: Tobacco Non-User Current no n-smoker Alcohol Screen Question Answer Notes Did you have a drink containing alcohol in the p ast year? Yes Points 0 Interpretation Negative Tobacco use other than smoking: Question Answer Notes Are you an other tobacco user? No Plan Of Treatment Pending Test Test Name Order Date X ray : Foot, left 3V 07/28/2018 Insurance Providers Payer Name Payer Address Payer Phone Subscriber Number Group Number Insured Name Patient Relationship to Insured Coverage Start Date Coverage End Date Medicare National [employer] S[employer] [address] [place] [address] [id number] Wanda Randhawa Self - patient is the insured 7 [employer] Blue [employer] [address] [place] [address] [id number] Wanda Randhawa Self - patient is the insured 7 Medical (General) History Medical History History ICD Code Back,Hip,and Knee pain Depression Chicken pox Gout Headaches Measles Mumps High blood pressure Macular degeneration Reflux chronic sinusitis thyroid
--- OUTSIDE RECORDS SUMMARY | 2025-08-28 14:52 | XMS_ITS | Clinical Summary ---
Author Organization [facility] Address [address] [place] [address] Phone Care Team Providers Care Batch Tester Name Role Phone Anny Black NP Primary Care Provider [phone] Allergies Active Allergy Reactions Criticality Noted Date Comments Penicillin Itching,Shortness Of Breath,Swelling High 08/09/2022 Sulfadiazine 08/09/2022 Medications SYNTHROID 125 mcg tablet Take 125 mcg by mouth daily. 2 Active citalopram (CELEXA) 20 MG tablet Take 20 mg by mouth daily. 2 Active allopurinol (ZYLOPRIM) 300 MG tablet Take 300 mg by mouth daily. 2 Active omeprazole (PRILOSEC) 20 MG capsule Take by mouth daily. 2 Active cholecalciferol (VITAMIN D3) 2,000 unit tablet Take 1,000 Units by mouth daily. Active therapeutic multivitamin tablet Take 1 tablet by mouth daily. Active amLODIPine (NORVASC) 5 MG tablet Take 5 mg by mouth 2 (two) times a day. 2 Active spironolactone (ALDACTONE) 25 MG tablet Take 1 tablet (25 mg total) by mouth daily. 90 tablet 3 2 Active doxazosin (CARDURA) 2 MG tablet Take 2 mg by mouth nightly at bedtime. Active cloNIDine HCL (CATAPRES) 0.1 MG tablet Take 0.1 mg by mouth 2 (two) times a day. Active BIOTIN ORAL Take by mouth. Act krys atorvastatin (LIPITOR) 40 MG tablet Take 40 mg by mouth daily. 3 Active cetirizine (ZYRTEC) 10 MG tablet Take 10 mg by mouth daily. Active LORazepam (ATIVAN) 0.5 MG tablet Take 1 tablet by mouth every 6 (six) hours as needed. 2 Active nystatin (NYSTOP) powder Apply topically 2 (two) times a day. 2 Active Active Problems Problem Noted Date Diagnosed Date Steatosis of liver 03/11/2023 03/11/2023 Small vessel disease 03/11/2023 03/11/2023 Osteopenia 03/11/2023 03/11/2023 Major depression in remission 03/11/2023 Obstructive sleep apnea 12/04/2022 03/11/20 Family history of ischemic h eart disease and other diseases of the circulatory system 12/04/2022 03/11/2023 Severe obesity 12/04/2022 03/11/2023 Vitamin D deficiency 09/10/2022 03/11/2023 Overview (03/11/2023): Last Assessment & Plan: On Vit D 2000 ID daily. Mixed hyperlipidemia 09/10/2022 03/11/2023 Overview (03/11/2023): Last Assessment & Plan: Calcium score of 136 raises her 10-year risk of a cardiac event to about 11%. I spoke to her about this. We will going to switch her from simvastatin 10 to atorvastatin 40. Labs 6-8 weeks. Last Assessment & Plan: On simvastatin 10 mg daily. Peripheral edema 06/29/2009 03/11/2023 Hypothyroidism 12/30/2007 03/11/2023 Gastric reflux 12/30/2007 03/11/2023 Gout 12/30/2007 03/11/2023 Irritable bowel syndrome 12/30/2007 023 Immunizations Immunization Administration Dates Next Due COVID-19 (Pre-08/19) Moderna Vaccine, mRNA, PF 0 01/24/2021,12/27/2020 Social History Tobacco Use Types Packs/Day Years [...] Orientation Straight 07/26/2022 4: 20 PM EDT Last Filed Vital Signs Vital Sign Reading Time Taken Comments Blood Pressure 118/57 03/04/2023 10:23 AM EDT Pulse 83 03/04/2023 10:23 AM EDT Temperature 36.5 C (97.7 F) 03/04/2023 10:23 AM EDT Respiratory Rate - - Oxygen Saturation 95% 08/09/2022 3:07 PM EDT Inhaled Oxygen Concentration - - Weight 99.8 kg (220 lb) 03/11/2023 9:41 AM EDT Height 154.9 cm (5' 1 ) 03/04/2023 10:23 AM EDT Body Mass Index 41.57 03/04/2023 10:23 AM EDT Plan of Treatment Health Maintenance Due Date Last Done Comments CREATININE LEVEL 1952 LIPID PANEL 1952 TSH LEVEL 1952 HEPATITIS C SCREENING 1970 MAMMOGRAM 1992 COLOGUARD 1997 COLONOSCOPY 1997 COLORECTAL CANCER SCREENING 1997 FIT TEST 1997 FOBT 1997 SIGMOIDOSCOPY 1997 VIRTUAL COLONOSCOPY 1997 RSV VACCINE (1 - Risk 50-74 years 1-dose series) 2002 OSTEOPOROSIS SCREENING INITIAL (ONE-TIME) 2017 DEPRESSION SCREENING 08/06/2023 08/06/2022 INFLUENZA VACCINE (#1) 2025 2, 07/25/2022, 08/27/2021, Additional history exists COVID-19 VACCINE ( season) 2025 09/27/2022, 08/27/2021, 01/24/2021, Additional history exists Adult Td,Tdap Booster 03/14/2026 03/14/2016, 009 HEPATITIS A VACCINES Aged Out 12/08/2012, 06/05/20 12 No longer eligible based on patient's age to complete this topic PNEUMOCOCCAL VACCINES (50+ years) Completed 09/19/2018, 08/26/2017 ZOSTER VACCINES Completed 10/16/2020, 10/2019, 10/16/2019, Additional history exists SMOKING STATUS SCREENING (Once After 26 Yrs) Completed 03/11/2023 HIB VACCINES Aged Out No longer eligi ble based on patient's age to complete this topic MENINGOCOCCAL VACCINES (ACWY) Aged Out No longer eligible based on patient's age to complete this topic MENINGOCOCCAL VACCINES (B) Aged Out N o longer eligible based on patient's age to complete this topic Medical Devices Not on file Insurance MEDICARE PART A & B [facility] MEDEX SUPPLEMENT MEDICARE PART A & B [employer] MEDEX SUPPLEMENT MEDICARE PART A & B [employer] MEDEX SUPPLEMENT MEDICARE PART A & B Member Subscriber Plan / Payer (Ef fective 2017-Present) Name:Wanda Randhawa Member ID:[id number] Relation to Subscriber:Self Name:Wanda Randhawa Subscriber ID:[id number] Payer ID:[id number] Group ID:Not on file Type:Medicare Address: [facility] [employer] [facility].[address] [address] [facility] MEDEX SUPPLEMENT MEDICARE PART A & B [employer] MEDEX SUPPLEMENT MEDICARE PART A & B [employer] MEDEX SUPPLEMENT MEDICARE PART A & B [employer] MEDEX SUPPLEMENT MEDICARE PART A & B [employer] MEDEX SUPPLEMENT MEDICARE PART A & B [employer] MEDEX SUPPLEMENT Care Teams Batch Tester Relationship Specialty Start Date End Date Anny Black NP [address] [place] [address] PCP - General Nurse Practitioner 04/02/25 Additional Source Comments The information contained in this document represents components of the legal health record. It is not the complete legal health record.[facility]
--- OUTSIDE RECORDS SUMMARY | 2025-08-28 14:52 | XMS_ITS | Encounter Summary ---
Author Organization [facility] Address [address] [place] [address] Phone Care Team Providers Care Preservative Filler Machine Operator Name Role Phone Manda Mcfadden Primary Care Provider [phone] Anny Black NP Primary Care Provider [phone] Encounter Details Date Type Department Care Team (Late st Contact Info) Description 07/31/2022 Procedure Pass [facility], [place] [address] [place] [address] Social History Tobacco Use Types Packs/Day Years Used Date Smoking Tobacco: Never Smokeless Tobacco: Never Comments Unknown Sex and Gender Information Value [...] on filedocumented in this encounter Care Teams Preservative Filler Machine Operator Relationship Specialty Start Date End Date Manda Mcfadden PA [address] [place] [address] PCP - General 07/26/22 04/01/25 Anny Black, EMELY [address] [place], [place] [id number] PCP - General Nurse Practitioner 04/02/25 documented as of this encounter Additional Source Comments The information contained in this document represents components of the legal health record. It is not the complete legal health record.[facility]
--- OUTSIDE RECORDS SUMMARY | 2025-08-28 14:52 | XMS_ITS | Encounter Summary ---
Author Organization [facility] Address [address] [place] [phone] Phone Care Team Providers Care Fish And Game Warden Name Role Phone Manda Mcfadden Primary Care Provider [phone] Anny Black NP Primary Care Provider [phone] Encounter Details Date Type Department Care Team (Latest Contact Info) Description 04/01/2025 Transcribe Orders Virtual Department [address] [place] [address] Duran Faye PA-C [address] [place] [id number] [email or web address] Other chest pain (Primary Dx); Epigastric pain; Large hiatal hernia Social History Tobacco Use Types Packs/Day Years [...] on file documented as of this encounter Results * US ABDOMEN COMPLETE (ADULT) (04/06/2025 10:30 AM EDT) Anatomical Region Laterality Modality Abdomen Ultrasound 04/06/2025 1:06 PM EDT Impressions 04/06/2025 1:11 PM EDT Increased hepatic echogenicity consistent with hepatocellular disease. This most likely represents hepatic steatosis. No focal lesions are identified. Otherwise no acute abdominal abnormality. Narrative 04/06/2025 1:11 PM EDT Procedure: US ABDOMEN COMPLETE (ADULT) 04/06/2025 9:42 AM US Indications: Outside Radiology Order; large hiatal hernia. Comparison: CT chest dated January 01, 2023. Technique: Serial longitudinal and transverse real time grayscale images, were acquired through the abdomen utilizing a curved array transducer. Color Doppler images were used assess vascularity. FINDINGS: Liver: Examination of the liver demonstrates diffusely increased echogenicity. There is a smooth hepatic surface contour. There is focal fatty sparing adjacent to the gallbladder fossa. There are no solid hepatic masses. No intrahepatic bile duct dilatation. Gallbladder: There are no shadowing calcifications. There is no pericholecystic fluid, or gallbladder wall thickening. The gallbladder wall measures 2 mm. The common bile duct is normal in caliber measuring 5 mm in diameter. Sonographic Perez's sign was assessed and negative. Pancreas: The visible portions of the mid pancreas have a normal texture and shape. The head and tail of the pancreas are obscured. Spleen: The spleen has length of 9.4 cm. No focal lesions. Kidneys: The right kidney is normal in shape and position. The cortical thickness is normal and there is normal echogenicity. The right kidney measures 10.2 cm in length. There is no evidence of hydronephrosis, shadowing calcifications, solid/cystic masses or perinephric collections. There is a complete column of Jose present within the kidney. The left kidney is normal in shape and position. The cortical thickness is normal and there is normal echogenicity. The left kidney measures 11.6 cm in length. There is no evidence of hydronephrosis, shadowing calcifications, solid/cystic masses or perinephric collections. Vascular: Partial visualization of the aorta secondary to obscuration from overlying bowel gas. The visualized portions of the aorta are normal. The IVC is adequately visualized and is patent. The portal vein diameter is 1.1 cm. Color interrogation of the portal vein reveals patency and hepatopetal flow, revealing a appropriate spectral venous duplex waveform. Ascites: None. Procedure Note Nine, Jacques Vilchis MD - 04/06/2025 Procedure: US ABDOMEN COMPLETE (ADULT) 04/06/2025 9:42 AM US Indications: Outside Radiology Order; large hiatal hernia. Comparison: CT chest dated January 01, 2023. Technique: Serial longitudinal and transverse real time grayscale images,were acquired through the abdomen utilizing a curved array transducer.Color Doppler images were used assess vascularity. FINDINGS: Liver: Examination of the liver demonstrates diffusely increasedechogenicity. There is a smooth hepatic surface contour. There is focalfatty sparing adjacent to the gallbladder fossa. There are no solidhepatic masses. No intrahepatic bile duct dilatation. Gallbladder: There are no shadowing calcifications. There is nopericholecystic fluid, or gallbladder wall thickening. The gallbladderwall measures 2 mm. The common bile duct is normal in caliber measuring 5mm in diameter. Sonographic Perez's sign was assessed and negative. Pancreas: The visible portions of the mid pancreas have a normal textureand shape. The head and tail of the pancreas are obscured. Spleen: The spleen has length of 9.4 cm. No focal lesions. Kidneys: The right kidney is normal in shape and position. The cortical thicknessis normal and there is normal echogenicity. The right kidney nxzgbkuc85.2 cm in length. There is no evidence of hydronephrosis, shadowingcalcifications, solid/cystic masses or perinephric collections. There is acomplete column of Jose present within the kidney. The left kidney is normal in shape and position. The cortical thickness isnormal and there is normal echogenicity. The left kidney measures 11.6 cmin length. There is no evidence of hydronephrosis, shadowingcalcifications, solid/cystic masses or perinephric collections. Vascular: Partial visualization of the aorta secondary to obscuration fromoverlying bowel gas. The visualized portions of the aorta are normal. TheIVC is adequately visualized and is patent. The portal vein diameter is1.1 cm. Color interrogation of the portal vein reveals patency andhepatopetal flow, revealing a appropriate spectral venous duplexwaveform. Ascites: None. IMPRESSION: Increased hepatic echogenicity consistent with hepatocellular disease.This most likely represents hepatic steatosis. No focal lesions areidentified. Otherwise no acute abdominal abnormality. Duran Neyda LACKEY IMG US ABDOMEN Final Resu lt * FL UGI SERIES DOUBLE CONTRAST (04/06/2025 9:49 AM EDT) Anatomical Region Laterality Modality Abdomen Computed Radiogr aphy 04/06/2025 12:3 0 PM EDT Impressions 04/06/2025 12:50 PM EDT Large sliding hiatal hernia, which probably has increased in size from prior barium swallow of 02/13/2023. No obstructive findings or gross gastroesophageal mucosal pathology. Small incidental diverticulum visualized in the C-loop. FLUOROSCOPY TIME: 1 MINUTE 41 SECONDS NUMBER OF IMAGES: 212 The examination was performed by RRAEliseo. Dr. Joss Peñaloza was immediately available for portions of the procedure as needed. ATTESTATION: I, Joss Peñaloza as teaching physician, have reviewed the images for this case and if necessary edited the report originally created by Eliseo Le. Narrative 04/06/2025 12:50 PM EDT FL UGI SERIES DOUBLE CONTRAST HISTORY: Large hiatal hernia COMPARISON: Barium swallow esophagram 02/13/2023. TECHNIQUE: Air contrast Upper Gi Series performed with barium and sodium bicarbonate. FINDINGS: Head Stock Transfer Clerk view of the abdomen demonstrates a nondistended bowel gas pattern. ESOPHAGUS: Motility: No significant esophageal dysmotility. Mucosa: No gross mucosal pathology identified fluoroscopically. Distensibility: Normal. GASTROESOPHAGEAL JUNCTION: Large hiatal hernia, containing the majority of the stomach without evidence of gastric outlet obstruction, which may have increased in size from prior study 02/13/2023. The GE junction appears to be around or above the level of the diaphragm. GASTROESOPHAGEAL REFLUX: None observed. STOMACH: Organoaxial volvulus without gross mucosal abnormality. DUODENUM: Bulb and sweep are normal. Duodenal-jejunal junction is in the normal expected position. There is a small incidental diverticulum visualized in the C-loop without contrast extravasation or active inflammation. Procedure Note Joss Peñaloza MD - 04/06/2025 FL UGI SERIES DOUBLE CONTRAST HISTORY: Large hiatal hernia COMPARISON: Barium swallow esophagram 02/13/2023. TECHNIQUE: Air contrast Upper Gi Series performed with barium and sodiumbicarbonate. FINDINGS: Head Stock Transfer Clerk view of the abdomen demonstrates a nondistended bowel gas pattern. ESOPHAGUS: Motility: No significant esophageal dysmotility. Mucosa: No gross mucosal pathology identified fluoroscopically. Distensibility: Normal. GASTROESOPHAGEAL JUNCTION: Large hiatal hernia, containing the majorityof the stomach without evidence of gastric outlet obstruction, which mayhave increased in size from prior study 02/13/2023. The GE junction appearsto be around or above the level of the diaphragm. GASTROESOPHAGEAL REFLUX: None observed. STOMACH: Organoaxial volvulus without gross mucosal abnormality. DUODENUM: Bulb and sweep are normal. Duodenal-jejunal junction is in thenormal expected position. There is a small incidental diverticulumvisualized in the C- loop without contrast extravasation or activeinflammation. IMPRESSION: Large sliding hiatal hernia, which probably has increased in size fromprior barium swallow of 02/13/2023. No obstructive findings or grossgastroesophageal mucosal pathology. Small incidental diverticulumvisualized in the C-loop. FLUOROSCOPY TIME: 1 MINUTE 41 SECONDS NUMBER OF IMAGES: 212 The examination was performed by RRAEliseo. Dr. Joss Peñaloza wasimmediately available for portions of the procedure as needed. ATTESTATION: I, Joss Peñaloza as teaching physician, have reviewed theimages for this case and if necessary edited the report originally createdby Eliseo Le. Duran Faye PA-C IMG FL MISC Final Resu lt documented in this encounter Visit Diagnoses Diagnosis Other chest pain- Primary Epigastric pain Abdominal pain, epigastric Large hiatal hernia Other chest pain Epigastric pain Abdominal pain, epigastric Large hiatal hernia documented in this encounter Care Teams Fish And Game Warden Relationship Specialty Start Date End Date Manda Mcfadden PA [address] [place] [address] PCP - General 07/26/22 04/01/25 Anny lBack NP [address] [place] [address] PCP - General Nurse Practitioner 04/02/25 documented as of this encounter Additional Source Comments The information contained in this document represents components of the legal health record. It is not the complete legal health record.[facility]
--- OUTSIDE RECORDS SUMMARY | 2025-08-28 14:52 | XMS_ITS | Clinical Summary ---
Author Organization [facility] [address] [facility] Address [address] [place] [address] Phone Care Team Providers Care Per Diem Name Role Phone Manda Mcfadden Primary Care Provider [phone] Allergies Active Allergy Reactions Criticality Noted Date Comments Penicillins Itching,Shortness of breath,Swelling High 12/31/2016 Sulfadiazine 08/09/2022 Medications allopurinoL (ZYLOPRIM) 300 mg tablet Take 1 tablet (300 mg total) by mouth. 2 Active amLODIPine (NORVASC) 5 mg tablet Take 1 tablet (5 mg total) by mouth 1 (one) time each day. Active atorvastatin (LIPITOR) 40 mg tablet Take 1 tablet (40 mg total) by mouth 1 (one) time each day. Active busPIRone (BUSPAR) 5 mg tablet Take 1 tablet (5 mg total) by mouth. 5 Active cetirizine (ZyrTEC) 10 mg tablet Take 1 tablet (10 mg total) by mouth daily. 6 Active cholecalciferol (VITAMIN D-3) 50 mcg (2,000 unit) tablet Take 0.5 tablets (1,000 Units total) by mouth daily. Active citalopram (CeleXA) 20 mg tablet Take 1.5 tablets (30 mg total) by mouth. 2 Active cloNIDine (CATAPRES) 0.1 mg tablet Take 1 tablet (0.1 mg total) by mouth. 4 Active dicyclomine (BENTYL) 10 mg capsule TAKE 1 CAPSULE BY MOUTH FOUR TIMES A DAY NEEDED FOR SPASM 5 Active Synthroid 125 mcg tablet Take 1 tablet (125 mcg total) by mouth. 2 Active LORazepam (ATIVAN) 0.5 mg tablet Take 1 tablet (0.5 mg total) by mouth. 2 Active losartan (COZAAR) 50 mg tablet Take 1 tablet (50 mg total) by mouth. 2 Active nystatin (MYCOSTATIN) 100,000 unit/gram powder Apply 1 Application topically 2 (two) times a day. 2 Active omeprazole (PriLOSEC) [address] capsule Take 1 capsule (20 mg total) by mouth 2 (two) times a day. Active BIOTIN ORAL Take by mouth. Act krys Active Problems Problem Noted Date Diagnosed Date Large hiatal hernia 03/31/2025 Assessment & Plan (03/31/2025 5:12 PM EDT): Reevaluate with upper GI Previous imaging was at [facility] and will plan for upper GI there Especially since patient would pursue surgical interventions at [facility] General Orders: XR UGI w Air Contrast; Future Surgical History Surgery Date Site/Laterality Comments COLONOSCOPY 2006 PROCEDURE: HISTORICAL COLONOSCOPY Medical History Medical History Date Comments Daytime somnolence DX:Daytime so mnolence Depression, major, in remiss ion (CMS/HCC V24) DX:Depression, major, in rem ission (HCC) Gastric reflux DX:Gastric reflu x Gout DX:Gout Hepatic steatosis DX:Hepatic abdulaziz atosis Hypothyroidism DX:Hypothyroidis m Irritable bowel syndrome (IBS) D X:Irritable bowel syndrome (IBS) Obesity DX:Obesity Obstructive sleep apnea DX:Obstr uctive sleep apnea Osteopenia DX:Osteopenia Peripheral edema DX:Peripheral e basilia Severe obesity (CMS/HCC V24, CMS/HCC V28) DX:Severe obesity (HCC) Family History Medical History Relation Name Comments Heart failure Father Heart failure Mother Other: angin Mother Other: massive coronary heart failure Sister Relation Name Status Comments Father (Age 72) Mother (Age 93) Sister (Age 65) Social History Tobacco Use Types Packs/Day Years Used Date Smoking Tobacco: Never Smokeless Tobacco: Never Alcohol Use Standard Drinks/Week Comments Never 0 (1 standard drink = 0.6 oz pur e alcohol) Comments Unknown Sex and Gender Information Value Date Recorded Sex Assigned at Not on file Legal Sex Female 7:09 AM EST Gender Identity Not on file Sexual Orientation Not on file Obstetrics History Last Filed Vital Signs Vital Sign Reading Time Taken Comments Blood Pressure 120/70 01/22/2023 12:32 PM EDT Pulse 79 12/04/2022 8:23 AM EST Temperature - - Respiratory Rate - - Oxygen Saturation - - Inhaled Oxygen Concentration - - Weight 95.3 kg (210 lb) 03/31/2025 1:43 PM EDT Height 152.4 cm (5') 03/31/2025 1:43 PM EDT Body Mass Index 41.01 03/31/2025 1:43 PM EDT Plan of Treatment Health Maintenance Due Date Last Done Comments Breast Cancer Screening 1950 RSV Immunization Adult Patients (1 - Risk 50-74 years 1-dose series) 2002 Cholesterol Screening (Lipid Panel) 09/30/2022 Falls Risk Assessment 09/30/2022 Hepatitis C Screening 09/30/2022 Osteoporosis Screening (Bone Density Screening) 09/30/2022 Social Influencers of Health Screening 09/30/2022 Hypertension/CHF/CAD Annual BMP Blood Test 11/26/2023 Medicare Annual Wellness Visit 04/16/2024 04/16/2023 Depression Screening 10/28/2024 COVID-19 Vaccine ( season) 2025 09/27/2022, 08/27/2021, 02/16/2021, Additional history exists Influenza Vaccine (#1) 2025 , 08/13/2023, 07/25/2022, Additional history exists DTaP,Tdap,and Td Vaccines (3 - Td or Tdap) 03/14/2026 03/14/2016, 06/23/2009 Colorectal Cancer Screening: Colonoscopy 09/18/2033 09/18/2023 Hepatitis A Vaccines Completed 12/08/2012, 06/05/20 12 Hepatitis B Vaccines Completed 12/08/2012, 07/07/2012, 06/05/2012 Pneumococcal Vaccine: 50+ Years Completed 09/19/2018, 08/26/2017 Zoster Vaccines Completed 10/16/2020, 11/0 10/2019, 10/16/2019, Additional history exists HIB Vaccines Aged Out No longer eligi ble based on patient's age to complete this topic HPV Vaccines Aged Out No longer eligi ble based on patient's age to complete this topic IPV Vaccines Aged Out No longer eligi ble based on patient's age to complete this topic MMR Vaccines Aged Out No longer eligi ble based on patient's age to complete this topic Meningococcal ACWY Vaccine Aged Out N o longer eligible based on patient's age to complete this topic Meningococcal B Vaccine Aged Out No l onger eligible based on patient's age to complete this topic RSV Immunization Patients Under 20 months Aged Out No longer eligible based on patient's age to complete this topic Varicella Vaccines Aged Out No longer eligible based on patient's age to complete this topic Procedures Procedure Name Priority Date/Time Associated Diagnosis Comments COLONOSCOPY Routine 09/18/2023 12:28 PM EST from Last 3 Months or Most Recently Relevant to Health Maintenance Results * COLONOSCOPY (09/18/2023 12:28 PM EST) Anatomical Region Laterality Modality Endoscopy us Historical Provider GI~PROCEDURE ORDERABLES F inal Result from Last 3 Months or Most Recently Relevant to Health Maintenance Insurance MEDICARE [facility] Care Teams Per Diem Relationship Specialty Start Date End Date Manda Mcfadden PA [address] PCP - General 12/04/22
--- OUTSIDE RECORDS SUMMARY | 2025-08-28 14:52 | XMS_ITS | Encounter Summary ---
Author Organization [facility] Address [address] [place] [address] Phone Care Team Providers Care Outdoor Guide Name Role Phone WayneAnny walton EMELY Primary Care Provider [phone] Encounter Details Date Type Department Care Team (Late st Contact Info) Description 09/24/2022 Telephone [facility] [address] [place] [address] Paul Iniguez MD Social History Tobacco Use Types Packs/Day Years Used Date Smoking Tobacco: Never Assessed Comments Unknown Sex and Gender Information Value Date Recorded Sex Assigned at Female 12/13/2022 4:14 PM EST Legal Sex Female 8:50 AM EST Gender Identity Female 12/13/2022 4:14 PM EST Sexual Orientation Straight 12/13/2022 4: 14 PM EST documented as of this encounter Miscellaneous Notes * Telephone Encounter - Rosario Ruiz - 09/24/2022 4:01 PM EST Pt called she would like to know the status of the US she's supposed to have scheduled. Please advise Thank you CB# [phone] documented in this encounter Plan of Treatment Upcoming Encounters Date Type Department Care Team (Late st Contact Info) Description 01/04/2026 10:00 AM EDT Office Visit [facility] [address] [facility] [address] [place] [phone] Saray Urbano ARNP [address] [phone] documented as of this encounter Visit Diagnoses Not on filedocumented in this encounter Care Teams Outdoor Guide Relationship Specialty Start Date End Date Anny Black NP [address] [place] [phone] PCP - General Nurse Practitioner 08/31/24 documented as of this encounter
--- OUTSIDE RECORDS SUMMARY | 2025-08-28 14:52 | XMS_ITS | Patient Health Record ---
Author Organization [facility] Address [address] [place] [address] Care Team Providers Care Bonsai Culturist Name Role Phone Manda Vitale Primary Care Provider U nae Keyshawn Rose Unavailable [phone] Allergies Allergen (clinical drug ingredient) Drug/Non Drug [...] minutes before morning meal Orally Once a day; Duration: 30 day(s) 09/04/2023 Active Losartan Potassium 50 MG 1 tablet Orally Once a day Active Spironolactone 25 MG Oral; Duration: 90 Days Active Synthroid 125 MCG 1 tablet in the morn ing on an empty stomach Orally Once a day Active Allergy 4 MG 1 tablet as needed Orally every 6 hrs 09/04/2023 Active Allopurinol 300 MG 1 tablet Orally Once a day Active Doxazosin Mesylate ER 4 MG 1 tablet with breakfast Orally Once a day; Duration: 30 day(s) 09/04/2023 Active Atorvastatin Calcium 40 MG TAKE 1 TABLET BY MOUTH EVERY DAY Oral; Duration: 90 Days Active Immunizations Vaccine Route Administration Date Status Comme nts Influenza Unknown 08/28/2023 Administered Problems Problem Type SNOMED Code ICD Code Onset Dates Problem Status W/U Status Risk Notes Problem Screening for malignant neoplasm of colon (740498804) Encounter for screening for malignant neoplasm of colon (Z12.11) Active confirmed Problem Irritable bowel syndrome (96097856) Irritable bowel syndrome without diarrhea (K58.9) Active confirmed Problem Screening for malignant neoplasm of rectum (395679034) Encounter for screening for malignant neoplasm of rectum (Z12.12) Active confirmed Problem Gastroesophageal reflux disease (967952983) Gastroesophageal reflux disease (K21.9) Active confirmed Problem Hiatal hernia (54015951) Hiatal hernia (K44.9) Active confirmed Problem Gastritis (9286413) Gastritis (K29.70) Active c onfirmed Problem Toro's esophagus (310793463) 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) Active confirmed Problem Gastroesophageal reflux disease (282343354) Gastroesophageal reflux disease, unspecified whether esophagitis present (K21.9) Active confirmed Problem Gastroesophageal reflux disease (disorder) (029142147) Chronic GERD (K21.9) Active confirmed Plan Of Treatment Pending Test Test Name Order Date CELIAC PANEL #10 03/01/2016 Future Test Test Name Order Date COLONOSCOPY 03/01/2016 UPPER GI ENDOSCOPY 09/04/2023 Insurance Providers Payer Name Payer Address Payer Phone Subscriber Number Group Number Insured Name Patient Relationship to Insured Coverage Start Date Coverage End Date MEDICARE OF [place] [address] [place] [address] [id number] JESSICA CAUSEY Self - patient is the insured [employer] ATT[employer] CLAIMS [address] [place] [address] [id number] JESSICA CAUSEY Self - patient is the insured Medical (General) History Medical History History ICD Code Colonoscopy 08-20-2003--neg except for diverticulosis and small internal hemorhoids IBS Hypothyroidism Hypertension Denies DE,DM,CVA,Lung disease,renal dise ase Hyperlipidemia GERD Allergies Gout Depression Hernia K46.9 Negative screening colonoscopy in 12/2016 Saw surgeons at [facility] for her hiatal hernia but opted to [...]
--- OUTSIDE RECORDS SUMMARY | 2025-08-28 14:52 | XMS_ITS | Clinical Summary ---
Author Organization [facility]. 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 [address] [facility] [address] [place] [id number] Saray UrbanoJAMES Stage 3a chronic kidney disease (HCC); Hypertension from Last 3 Months Immunizations Immunization Administration [...] Reading Time Taken Comments Blood Pressure 120/70 07/07/2025 1:43 PM EDT Pulse 67 07/07/2025 1:43 PM EDT Temperature - - Respiratory Rate - - Oxygen Saturation 95% 01/04/2025 10:23 AM EDT Inhaled Oxygen Concentration - - Weight 88.9 kg (196 lb) 07/07/2025 1:43 PM EDT Height 154.9 cm (5' 1 ) 09/03/2023 3:26 PM EST Body Mass Index 37.03 09/03/2023 3:26 PM EST Plan of Treatment Upcoming Encounters Date Type Department Care Team (Late st Contact Info) Description 01/04/2026 10:00 AM EDT Office Visit [facility] P.CChrissy [address] [facility] [address] [place] [address] Sundeep SarayJAMES [address] [facility] [address] [place] [address] Health Maintenance Due Date Last Done Comments Breast Cancer Screening 1950 Colorectal Cancer Screening: Annual FOBT 2001 Colorectal Cancer Screening: Colonoscopy 2001 Colorectal Cancer Screening: Sigmoidoscopy 2001 Hepatitis B Vaccine (1 of 3 - Risk 3-dose series) 2012 12/08/2012, 07/07/2012, 06/05/2012 Influenza Vaccine (#1) 2025 2, 08/25/2019, 07/07/2012, Additional history exists Pneumococcal Vaccine: 50+ Years Completed 8, 08/26/2017 Procedures Procedure Name Priority Date/Time Associated Diagnosis Comments URINE ALBUMIN / CREATININE RATIO Routine 07/28/2025 11:06 AM EDT Stage 3a chronic kidney disease (HCC) Hypertension PROTEIN / CREATININE RATIO, URINE Routine 07/28/2025 11:06 AM EDT Stage 3a chronic kidney disease (HCC) Hypertension CBC Routine 07/28/2025 11:06 AM EDT Stage 3a chronic kidney disease (HCC) Hypertension RENAL FUNCTION PANEL Routine 07/28/2025 11:06 AM EDT Stage 3a chronic kidney disease (HCC) Hypertension PTH, INTACT Routine 07/28/2025 11:06 AM EDT Stage 3a chronic kidney disease (HCC) Hypertension from Last 3 Months Results * Urine Protein / creatinine ratio (07/28/2025 11:06 AM EDT) Creatinine, Ur 190.0 Not Estab. mg/dL [facility] Protein, Ur 12.2 Not Estab. mg/dL [facility] Urine Protein/Creatin ine Ratio 64 0 - 200 mg/g creat [facility] Urine specimen (specimen) Urine specimen obtained by clean catch procedure / Unknown 07/28/2025 11:06 AM EDT 07/28/2025 Saray Urbano [facility] URINE ORDERABLES Final Result Performing Organization Address City/[facility]/ZIP Co de Phone Number [facility] [address] [place] [address] * Urine Albumin / Creatinine Ratio (07/28/2025 11:06 AM EDT) Albumin, Urine 14.7 Not Estab. ug/mL [facility] Albumin/Creatin ine Ratio 8 0 - 29 mg/g creat [facility] Comment: Normal: 0 - 29 Moderately increased: 30 - 300 Severely increased: >300 Urine specimen (specimen) Urine specimen obtained by clean catch procedure / Unknown 07/28/2025 11:06 AM EDT 07/28/2025 [employer] [facility] URINE ORDERABLES Final Result [facility] [address] [place] [address] * CBC (07/28/2025 11:06 AM EDT) WBC 6.1 3.4 - 10.8 x10E3/uL [facility] RBC 4.03 3.77 - 5.28 x10E6/uL [facility] Hemoglobin 13.2 11.1 - 15.9 g/dL [facility] Hematocrit 39.2 34.0 - 46.6 % [facility] MCV 97 79 - 97 fL [facility] MCH 32.8 26.6 - 33.0 pg [facility] MCHC 33.7 31.5 - 35.7 g/dL [facility] RDW 14.2 11.7 - 15.4 % [facility] Platelets 312 150 - 450 x10E3/uL [facility] Blood specimen (specimen) Venous blood / Unknown 07/28/2025 11:06 AM EDT 07/28/2025 Saray [facility] BLOOD ORDERABLES Final Result [facility] [address] [place] [address] * PTH, intact (07/28/2025 11:06 AM EDT) PTH 50 15 - 65 pg/mL [facility] Blood specimen (specimen) Venous blood / Unknown 07/28/2025 11:06 AM EDT 07/28/2025 [employer] [facility] BLOOD ORDERABLES Final Result [facility] [address] [place] [address] * (ABNORMAL) Renal function panel (07/28/2025 11:06 AM EDT) Glucose 106(H) 70 - 99 mg/dL [facility] BUN 11 8 - 27 mg/dL [facility] Creatinine 0.86 0.57 - 1.00 mg/dL [facility] eGFR CKD-EPI CR 2020 71 >59 mL/min/1.7 3 [facility] BUN/Creatinine Ratio 13 12 - 28 [facility] Sodium 140 134 - 144 mmol/L [facility] Potassium 4.5 3.5 - 5.2 mmol/L [facility] Chloride 101 96 - 106 mmol/L [facility] Bicarbonate (CO2) 21 20 - 29 mmol/L [facility] Calcium 9.7 8.7 - 10.3 mg/dL [facility] Albumin 4.4 3.8 - 4.8 g/dL [facility] Phosphorus 3.5 3.0 - 4.3 mg/dL [facility] Blood specimen (specimen) Venous blood / Unknown 07/28/2025 11:06 AM EDT 07/28/2025 Saray [facility] LAB BLOOD ORDERABLES Final Result [facility] [address] [place] [address] from Last 3 Months Insurance Medicare [facility] Medicare [facility] Care Teams Shrimp Packer Relationship Specialty Start Date End Date Anny Black NP [address] [place] [phone] PCP - General Nurse Practitioner 08/31/24
[2025-08-28 15:07] LABS: MANUAL DIFF FLAG NO
[2025-08-28 15:09] LABS: Hematocrit 42.0 % (37.0-47.0); Hemoglobin 14.2 g/dl (12.0-16.0); Imm Gran Abs Auto 0.25 X10*3/uL (0.00-0.03); Imm Gran Pct Auto 1.9 % (0.0-0.4); Lymphocytes Absolute Auto 1.8 X10*3/uL (1.2-4.9); Mean Corpuscular HGB Conc 33.8 g/dl (31.0-35.0); Mean Corpuscular Hemoglobin 31.5 pg (27.0-33.0); Mean Corpuscular Volume 93.1 fL (80.0-98.0); NRBC Abs Auto 0.000 X10*3/uL (0.0-0.012); NRBC Pct Auto 0.0 /100WBC (0.0-0.2); Platelet Count 394 X10*3/uL (160-400); Red Blood Count 4.51 X10*6/uL (4.20-5.50); White Blood Count 13.1 X10*3/uL (4.8-10.8)
[2025-08-28 15:26] LABS: Alanine Aminotransferase 20 U/L (0-31); Albumin Level 4.7 g/dL (3.5-5.0); Alkaline Phosphatase 102 U/L (39-117); Anion Gap 15 (12-20); Aspartate Amino Transferase 18 U/L (5-31); Blood Urea Nitrogen 22 mg/dL (9-16); Calcium 9.4 mg/dL (8.4-10.2); Carbon Dioxide 24 mmol/L (22-29); Chloride 106 mmol/L (96-108); Creatinine Clr Calc Pharmacy 57.7; Estimated Glomerular Filt Rate > 60; Magnesium 2.0 mg/dL (1.6-2.6); Potassium 4.0 mmol/L (3.3-5.1); Sodium 141 mmol/L (135-145); Total Protein 7.2 g/dL (6.5-8.0)
[2025-08-28 15:38] LABS: Troponin-I High Sensitivity < 2.7 ng/L (<3.5-17.0)
[2025-08-28] MEDS: oxyCODONE HCl Immed Release 5 MG TABLET PO (17:12)
--- NOTE | 2025-08-28 17:28 | ED.FALL ---
HPI - Fall General Chief Complaint: Fall Stated Complaint: FALL AT HOME + HEAD STRIKE Time Seen by Provider: 08/28/25 16:01 Source: patient, family, EMS and old records reviewed Mode of arrival: EMS Limitations: no limitations History of Present Illness ED Provider: JENNIFER SANTILLAN Narrative: 75 yo female with PMH of HLD, HTN, not on blood thinners, has been dealing with low back issue herniated disc via [facility] which has been causing left knee giving out - she is on prednisone. She went to walk up the stairs today and her left leg gave out she fell forward no LOC but his L forehead and injured L elbow area. She is R hand dominant. NO vomiting, no other injury no neck pain. No preceding symptoms states her leg gave out which has been an issue. She landed on a concrete floor which had a carpet. 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) Fall from: standing Fall witnessed: no Place fall occurred: home Loss of consciousness: none Prolonged down time: no Symptoms prior to fall: none Context: other Location of injury: head and face Location of injury - extremities: left: arm and elbow Severity: moderate Quality: dull Associated symptoms (after fall): denies Related Data Home Medications ?Medication ?Instructions ?Recorded ?Confirmed allopurinol 300 mg tablet 300 mg PO DAILY 09/16/23 09/16/23 amlodipine 5 mg tablet 5 mg PO DAILY 09/16/23 09/16/23 atorvastatin 40 mg tablet 40 mg PO DAILY 09/16/23 09/16/23 cetirizine 10 mg tablet (Zyrtec) 10 mg PO DAILY 09/16/23 09/16/23 cholecalciferol (vitamin D3) 50 50 mcg PO DAILY 09/16/23 09/16/23 mcg (2,000 unit) capsule (Vitamin D3) citalopram 20 mg tablet 20 mg PO DAILY 09/16/23 09/16/23 doxazosin 2 mg tablet 2 mg PO BEDTIME 09/16/23 09/16/23 levothyroxine 125 mcg tablet 125 mcg PO DAILY 09/16/23 09/16/23 (Synthroid) multivitamin 1 tab PO DAILY 09/16/23 09/16/23 buspirone 5 mg tablet 5 mg PO BID 04/22/25 losartan 50 mg tablet 50 mg PO DAILY 04/22/25 omeprazole 20 mg capsule,delayed 20 mg PO BID 04/22/25 release spironolactone 50 mg tablet 50 mg PO DAILY 04/22/25 Previous Rx's ?Medication ?Instructions ?Recorded fluticasone propionate 50 1 spray intranasal Q12H #16 grams 04/22/25 mcg/actuation nasal spray,suspension cyclobenzaprine 10 mg tablet 10 mg PO BEDTIME PRN muscle spasm 08/28/25 #20 tabs oxycodone 5 mg tablet 5 mg PO Q4H PRN pain #20 tabs 08/28/25 Allergies Allergy/AdvReac Type Severity Reaction Status Date / Time penicillin G (PENICILLIN G) Allergy Severe TONGUE Verified 08/28/25 14:35 SWELLED AT AGE OF [age] YEAR OLD Sulfa (Sulfonamide Allergy Intermediate ITCHY, Verified 08/28/25 14:35 Antibiotics) (SULFA hives (SULFONAMIDE ANTIBIOTICS)) Review of Systems Review of Systems: Constitutional : No Fever, No Chills ENT/Mouth : No Ear Pain, No Hoarseness, No sore throat Eyes: No Eye Pain, No Swelling, No Redness, No Foreign Body Cardiovascular : No Chest Pain, No SOB Respiratory : No Cough, No Dyspnea Gastrointestinal : No Nausea, No Vomiting, No Diarrhea, No abdominal Pain Genitourinary : No Dysuria, No Hematuria Musculoskeletal : positive joint pain, No Myalgias, pos Joint Swelling Skin : No Skin lacerations, No rash Neuro : No Weakness, No Numbness, No Loss of Consciousness All other systems reviewed and are negative PMFSH Past Medical History Attestation statement: The following information was validated with the patient. Source: old records reviewed Medical History IBS (irritable bowel syndrome) YNES on CPAP Seasonal allergies Anxiety GERD (gastroesophageal reflux disease) High cholesterol HTN (hypertension) Hypothyroid Surgical History Hx of colonoscopy Social History Social History Are you a primary medicare biller to a significant other at home: No Do you presently have visiting nurse or other home services: No Patient Tobacco Use Status: Never used Tobacco Advance Directives: No Advance Directives Information Provided: Yes Do you have a plan to hurt others: No Plan Physical Exam Vital Signs: Vital Signs: Last Vital Signs Temp 98 F 08/28/25 14:34 Pulse 67 08/28/25 18:19 Resp 20 08/28/25 18:19 BP 146/64 H 08/28/25 18:19 Pulse Ox 97 08/28/25 18:19 O2 Del Method Room Air 08/28/25 18:19 BMI result Body Mass Index 39.8 Appearance: Alert. Oriented X3. No acute distress. Eyes: Pupils equal, round and reactive to light. EOMintact ENT: Pharynx normal. L forehead above eyebrow abrasion but large hematoma noted Neck: Normal inspection. Neck supple. no midline ttp CVS: Normal heart rate and rhythm. Pulses normal. Chest: no ttp Respiratory: No respiratory distress. Breath sounds normal. Abdomen: Soft and nontender. Skin: Skin warm and dry. Normal skin color. Normal skin turgor. Extremities: No lower extremity edema. no pain in LE or RUE, has pain in LUE near prox to mid shaft humerus she is distal NV intact Neuro: Oriented X 3. No motor deficit. No sensory deficit. CN2-12 intact Course Course Course Narrative: refrisk negative asking for sleep aid as well due to lack of sleep from prednisone discussed flexeril and safeyty not to mix meds Medications Administered Discontinued Medications Generic Name Dose Route Start Last Admin Trade Name Christopherq PRN Reason Stop Dose Admin Ondansetron HCl 4 mg 08/28/25 16:32 08/28/25 17:12 Ondansetron Odt 4 Mg Tab.Rapdis TRANSLINGU 08/28/25 16:33 4 mg ONCE ONE Administration Oxycodone HCl 5 mg 08/28/25 16:32 08/28/25 17:12 Oxycodone Hcl Immed Release 5 Mg Tablet PO 08/28/25 16:33 5 mg ONCE ONE Administration Procedures Orthopedic Splinting/Casting Injury #1: Side: left Upper Extremity Injury Location: upper arm Upper Extremity Immobilizer: sling/shoulder immobilizer Additional Comments: NV intact Medical Decision Making Medical Decision Making MDM Narrative: 75 yo female with PMH of HLD, HTN, not on blood thinners now here with L arm injury (NV intact), L facial trauma she is GCS 15. She has no other injury on exam. Will provide pain control and obtain CT scan head/cspine/facial bones. I have ordered xrays of L humerus and L elbow. I am going to apply appropriate sling to LUE. Differential Diagnosis Differential Diagnoses: The differential diagnosis associated with the presentation includes trauma, fracture, ICH Admission/Observation Consideration of admission/observation: Escalation of care including admission/observation considered stable for DC can be managed at home wants to follow with [facility] - disc made Lab Data MDM Lab Attestation statement: I reviewed the patient's lab results. 08/28/25 15:03 08/28/25 15:03 Labs: Lab Results 08/28/25 Range/Units 15:03 WBC 13.1 H (4.8-10.8) X10*3/uL RBC 4.51 (4.20-5.50) X10*6/uL Hgb 14.2 (12.0-16.0) g/dl Hct 42.0 (37.0-47.0) % MCV 93.1 (80.0-98.0) fL MCH 31.5 (27.0-33.0) pg MCHC 33.8 (31.0-35.0) g/dl RDW 13.9 (11.0-16.0) % Plt Count 394 (160-400) X10*3/uL MPV 10.3 (9.4-12.3) fL Immature Gran % (Auto) 1.9 H (0.0-0.4) % Neut % (Auto) 82.0 H (45-73) % Lymph % (Auto) 13.9 L (20-40) % [place] % (Auto) 1.9 L (2-11) % Eos % (Auto) 0.1 (0-4) % Baso % (Auto) 0.2 (0-2) % Lymph # (Auto) 1.8 (1.2-4.9) X10*3/uL [place] # (Auto) 0.3 (0.1-1.2) X10*3/uL Eos # (Auto) 0.0 (0.0-0.4) X10*3/uL Baso # (Auto) 0.0 (0.0-0.2) X10*3/uL Abs Immat Gran (auto) 0.25 H (0.00-0.03) X10*3/uL Absolute Neuts (auto) 10.7 H (2.0-8.3) x10*3/uL Absolute Nucleated RBC 0.000 (0.0-0.012) X10*3/uL Nucleated RBC % (auto) 0.0 (0.0-0.2) /100WBC Sodium 141 (135-145) mmol/L Potassium 4.0 (3.3-5.1) mmol/L Chloride 106 (96-108) mmol/L Carbon Dioxide 24 (22-29) mmol/L Anion Gap 15 (12-20) BUN 22 H (9-16) mg/dL Creatinine 0.88 (0.5-1.4) mg/dL Estim Creat Clear Calc 57.7 Estimated GFR > 60 Random Glucose 191 H (60-115) mg/dL Calcium 9.4 (8.4-10.2) mg/dL Magnesium 2.0 (1.6-2.6) mg/dL Total Bilirubin 0.8 (0.0-1.0) mg/dL AST 18 (5-31) U/L ALT 20 (0-31) U/L Alkaline Phosphatase 102 (39-117) U/L Troponin I High Sens < 2.7 (<3.5-17.0) ng/L Total Protein 7.2 (6.5-8.0) g/dL Albumin 4.7 (3.5-5.0) g/dL Independent Interpretation I performed an independent interpretation of an: Plain X-Ray (left humeral head fx) and CT Scan (no ICH/fracture) Radiology Impression Discussion of test interpretation with radiology: I have reviewed the radiologist's reading. Independent Historian Clinical information obtained from an independent historian. History obtained from or confirmed by: Spouse External Record Review External record reviewed: Outpatient record Prescription Management I considered prescription management with: Pain Medication and Other Discharge Plan Discharge Clinical Impression: Contusion of face Qualifiers: Encounter type: initial encounter Qualified Code(s): S00.83XA - Contusion of other part of head, initial encounter Head injury Qualifiers: Encounter type: initial encounter Qualified Code(s): S09.90XA - Unspecified injury of head, initial encounter Closed left humeral fracture Qualifiers: Encounter type: initial encounter Humerus Location: proximal Fracture morphology: other fracture Fracture alignment: displaced Qualified Code(s): S42.292A - Other displaced fracture of upper end of left humerus, initial encounter for closed fracture Patient Disposition: Home, Self-Care Instructions: Arm Fracture in Adults (ED), Head Injury (ED), Hematoma (ED) Additional Instructions: labs reassuring CT scans of brain, facial bones, cervical spine are normal elbow there is no fracture humerus there is a proximal fracture of the head of the humerus wear sling until cleared by orthopedics, move wrist gently return for worsening pain, numbness, weakness, confusion or any other concerns call [facility] for Saturday Prescriptions: New cyclobenzaprine 10 mg tablet 10 mg PO BEDTIME PRN (Reason: muscle spasm) Qty: 20 0RF oxycodone 5 mg tablet 5 mg PO Q4H PRN (Reason: pain) Qty: 20 0RF Rx Instructions: Partial Fill upon patient request. No Action atorvastatin 40 mg tablet 40 mg PO DAILY amlodipine 5 mg tablet 5 mg PO DAILY citalopram 20 mg tablet 20 mg PO DAILY levothyroxine [Synthroid] 125 mcg tablet 125 mcg PO DAILY allopurinol 300 mg tablet 300 mg PO DAILY doxazosin 2 mg tablet 2 mg PO BEDTIME multivitamin Tablet 1 tab PO DAILY cetirizine [Zyrtec] 10 mg Tablet 10 mg PO DAILY cholecalciferol (vitamin D3) [Vitamin D3] 50 mcg (2,000 unit) Capsule 50 mcg PO DAILY losartan 50 mg tablet 50 mg PO DAILY omeprazole 20 mg capsule,delayed release(DR/EC) 20 mg PO BID buspirone 5 mg tablet 5 mg PO BID spironolactone 50 mg tablet 50 mg PO DAILY fluticasone propionate 50 mcg/actuation spray,suspension 1 spray intranasal Q12H Qty: 16 0RF Rx Instructions: administer into each nostril Print Language: Bengali
[2025-08-28 18:19] VITALS: BP 146/64; PULSE 67; RESP 20; O2SAT 97
[2025-08-28 19:35] VITALS: BP 146/64; PULSE 67; RESP 20; TEMP -17.7; TEMP 0; O2SAT 97
== END 2025-08-28 19:50 | disposition home or self-care (01) ==
PROVIDERS: Emergency Provider Emergency Medicine; PCP Nurse Practitioner Family
DX: S42.292A Other displaced fracture of upper end of left humerus, initial encounter for closed fracture (principal); S00.83XA Contusion of other part of head, initial encounter; M54.2 Cervicalgia; M79.602 Pain in left arm; R51.9 Headache, unspecified; I10 Essential (primary) hypertension; W10.9XXA Fall (on) (from) unspecified stairs and steps, initial encounter; Y93.9 Activity, unspecified; Y92.9 Unspecified place or not applicable; Y99.8 Other external cause status; Z79.899 Other long term (current) drug therapy
CPT/HCPCS: 29105; 36415; 70450; 70486; 72125; 73060; 73080; 80053; 83735; 84484; 85025; 99284

== ENCOUNTER → 2025-08-28 16:32 | Outpatient (BNV) | payer MEDICARE, SELFPAY | PROVIDERS: Emergency Provider Emergency Medicine; PCP Nurse Practitioner Family; Visit Provider Radiology Diagnostic Radiology | DX: Z04.3 Encounter for examination and observation following other accident (principal); S05.12XA Contusion of eyeball and orbital tissues, left eye, initial encounter; S42.292A Other displaced fracture of upper end of left humerus, initial encounter for closed fracture; W18.39XA Other fall on same level, initial encounter | CPT/HCPCS: 70450; 70486; 72125; 73060; 73080 ==